=== PATIENT | male | born 1940 | race Caucasian/White ===

== ENCOUNTER 2016-09-28 08:29 | Inpatient (IN) | payer MEDICARE, OTHER ==
[2016-09-28] MEDS ORDERED: Ondansetron 4 MG Tab.DIS PO PRN (12:48)
[2016-09-28] MEDS ORDERED: Morphine 2 MG/ML Syringe IVPUSH PRN (12:48)
[2016-09-28] MEDS ORDERED: traMADol 50 MG Tab PO PRN (12:54)
--- NOTE | 2016-09-28 14:42 | CR ---
CLINICAL HISTORY: 76-year-old male with fever. INTERPRETATION: Old healed fracture deformities with pleural scarring posterolateral left sixth and seventh ribs. Calcifications arch of the aorta and chronic hypertrophic arthritic changes of spine. Cardiac silhouette prominent but no cephalization of flow, signs of alveolar edema or dependent pleu ral effusion. Subtle peribronchial "cuffing" but no lung mass, hilar lymphadenopathy or focal lobar pneumonia. No pneumothorax. CONCLUSION: Old left rib fractures. Mild bronchitis. No lobar pneumonia.
[2016-09-28] MEDS: Acetaminophen 500 MG Tab PO PRN (17:03)
--- NOTE | 2016-09-28 20:06 | HP ---
CHIEF COMPLAINT: Status post right total hip arthroplasty. HISTORY OF PRESENTING ILLNESS: Mr. Camilo Obrien is a 76-year-old male with a medical history significant for hypertension, hyperlipidemia, severe osteoarthritis, multiple previous fractures in the past status post left total hip arthroplasty, and currently underwent a right total hip arthroplasty on September 25, 2016, with an estimated blood loss of 400 mL under general anesthesia, was transferred from [facility] for continued physical therapy and occupational therapy. At this time, the patient complaints of mild pain at the surgical site which is the right hip. He grades the pain as 2 to 3/10 in intensity, which gets aggravated on ambulation, relieved with rest and pain medication, nonradiating type of pain, not associated with any nausea or vomiting. Denies any chest pains. No shortness of breath. No abdominal pain. No fevers. No chills. No cough. No sputum in the last few days. No complaints of diarrhea in the last 2 days. The patient has a longstanding history of hypertension and currently on antihypertensive medication. He denied any history of chest pains on exertion. No history of dyspnea on exertion. No history of orthopnea or paroxysmal nocturnal dyspnea. The patient denied any history of hematemesis, hematochezia, or melanotic stools. Normal bowel and bladder habits otherwise. REVIEW OF SYSTEMS: A complete review of system including skin, ear, nose, and throat, cardiovascular system, respiratory system, gastrointestinal system, genitourinary system, hematology, oncology, neurology, allergy, immunology, and constitutional were all evaluated and were negative except for the above-said notes. PAST MEDICAL HISTORY: Significant for: 1. Hypertension. 2. Hyperlipidemia. 3. Severe osteoarthritis. 4. History of blood loss anemia in the past. PAST SURGICAL HISTORY: Significant for: 1. Carotid endarterectomy. 2. Tonsillectomy and adenoidectomy. 3. Status post left total hip arthroplasty. 4. History of right ankle fracture. ALLERGIES: The patient is noted to have allergies to chlorhexidine which causes a rash. SOCIAL HISTORY: Had a history of smoking in the past, but quit smoking more than 12 to 15 years back. History of occasional alcohol intake, very rarely. FAMILY HISTORY: Significant for cancer in his mother. PHYSICAL EXAMINATION: Vital Signs: Temperature 101.2, blood pressure 148/73, respiratory rate of 18, saturating at 96% on room air. General Appearance: The patient is well oriented to time, place, and person. Follows commands spontaneously. Cardiovascular System: S1, S2 heard with normal intensity. No gallops. Respiratory System: Clear to auscultation bilaterally. No wheeze. No crepitations. Abdomen: Soft. Bowel sounds positive. Nontender. No rigidity. Extremities: No edema in bilateral lower extremities. Neurology: No gross focal neurological deficits. Skin: No acute rash noted. LABORATORY DATA: No new labs ordered for today and labs obtained yesterday shows sodium 140, potassium 3.9, chloride 105, bicarb 26.4, creatinine 0.8. WBC 11.2, hemoglobin for 12.7, hematocrit 37.4, platelet count 135. HOME MEDICATIONS: Include: 1. Lipitor 10 mg daily. 2. Norvasc 10 mg daily. 3. Metoprolol-XL 100 mg twice a day. 4. Hydrochlorothiazide 25 mg daily. 5. Plavix 75 mg daily. 6. Aspirin 81 mg daily. 7. Tylenol Extra Strength 500 mg every 6 hours as needed for pain. Medications upon discharged from [facility]: 1. Ultram 50 mg every 4 hours as needed for pain. 2. Percocet 5/325 mg every 4 hours as needed for pain 1 to 2 tablets. ASSESSMENT: 1. Status post right total hip arthroplasty. 2. fever. 3. Hypertension. 4. Hyperlipidemia. PLAN: 1. Status post right hip arthroplasty done on 09/25/2016, currently complains of mild pain. We will continue with oral and IV pain medications for now. We will have Physical Therapy and Occupational Therapy evaluate and treat while in the swing bed. We will follow. 2. Fever. The was patient noted to have a temperature of 101.2. Exact source is not clear. The patient denies any cough with sputum. We will obtain a chest x-ray. We will obtain urinalysis. We will obtain blood cultures at this time. No indication for IV antibiotics as there is no primary source of infection identified, unsure this fever is resulting in the postoperative period. No discharge noted at the surgical site also. No acute rash noted. We will closely follow the culture reports and labs. 3. Hypertension. The patient's blood pressure seems to be in an acceptable range. Continue current antihypertensive medications. 4. DVT prophylaxis as recommended by the orthopedic team. 5. Hyperlipidemia. The patient is currently on statin with Lipitor 10 mg daily. Continue the same. 6. Code status. The patient wants to be full code. 7. Discussed with the patient and family members regarding the plan of care. Reviewed the labs and medications. Reviewed the old charts. [facility] /[id number]
[2016-09-28] MEDS: Metoprolol Succinate 50 MG Tab.ER PO SCH (20:46)
[2016-09-29] MEDS: Acetaminophen/oxyCODONE 325-5 MG Tab PO PRN (04:31)
[2016-09-29 06:34] LABS: CHLORIDE,CL 102 mmol/L (101-111); SODIUM,NA 140 mmol/L (135-145)
[2016-09-29] MEDS ORDERED: Aspirin 81 MG Tab.Chew PO SCH (09:00)
[2016-09-29] MEDS: atorvaSTATin 10 MG Tab PO SCH (09:02)
[2016-09-29] MEDS: amLODIPine 5 MG Tab PO SCH (09:02)
[2016-09-29] MEDS: Metoprolol Succinate 50 MG Tab.ER PO SCH ×2 (09:04→21:21)
[2016-09-29] MEDS: Hydrochlorothiazide 25 MG Tab PO SCH (09:05)
[2016-09-29] MEDS: Clopidogrel 75 MG Tab PO SCH (09:05)
[2016-09-29] MEDS: Acetaminophen 500 MG Tab PO PRN ×2 (09:06→17:37)
[2016-09-29] MEDS: Enoxaparin 40 MG/0.4 ML Syringe SUBCUT SCH (09:07)
[2016-09-29] MEDS: Levofloxacin 500 MG Tab PO SCH (15:18)
[2016-09-29] MEDS: Potassium Chloride 10 MEQ Tab.ER PO SCH (17:37)
[2016-09-30] MEDS: Acetaminophen/oxyCODONE 325-5 MG Tab PO PRN ×3 (01:29→23:18)
[2016-09-30] MEDS: Zolpidem 5 MG Tab PO PRN ×2 (01:30→23:18)
[2016-09-30 06:53] LABS: CHLORIDE,CL 101 mmol/L (101-111); SODIUM,NA 139 mmol/L (135-145)
[2016-09-30] MEDS: amLODIPine 5 MG Tab PO SCH (08:29)
[2016-09-30] MEDS: atorvaSTATin 10 MG Tab PO SCH (08:29)
[2016-09-30] MEDS: Metoprolol Succinate 50 MG Tab.ER PO SCH ×2 (08:29→21:49)
[2016-09-30] MEDS: Hydrochlorothiazide 25 MG Tab PO SCH (08:29)
[2016-09-30] MEDS: Levofloxacin 500 MG Tab PO SCH (08:29)
[2016-09-30] MEDS: Potassium Chloride 10 MEQ Tab.ER PO SCH ×2 (08:29→17:23)
[2016-09-30] MEDS: Clopidogrel 75 MG Tab PO SCH (08:29)
[2016-09-30] MEDS: Enoxaparin 40 MG/0.4 ML Syringe SUBCUT SCH (08:29)
[2016-10-01] MEDS: Levofloxacin 500 MG Tab PO SCH (09:55)
[2016-10-01] MEDS: Potassium Chloride 10 MEQ Tab.ER PO SCH ×2 (09:55→17:49)
[2016-10-01] MEDS: Clopidogrel 75 MG Tab PO SCH (09:57)
[2016-10-01] MEDS: Hydrochlorothiazide 25 MG Tab PO SCH (09:58)
[2016-10-01] MEDS: Metoprolol Succinate 50 MG Tab.ER PO SCH ×2 (09:58→20:40)
[2016-10-01] MEDS: atorvaSTATin 10 MG Tab PO SCH (09:58)
[2016-10-01] MEDS: amLODIPine 5 MG Tab PO SCH (09:59)
[2016-10-01] MEDS: Enoxaparin 40 MG/0.4 ML Syringe SUBCUT SCH (09:59)
[2016-10-01] MEDS: Acetaminophen/oxyCODONE 325-5 MG Tab PO PRN (20:41)
[2016-10-02] MEDS: atorvaSTATin 10 MG Tab PO SCH (09:19)
[2016-10-02] MEDS: Metoprolol Succinate 50 MG Tab.ER PO SCH ×2 (09:19→20:29)
[2016-10-02] MEDS: Hydrochlorothiazide 25 MG Tab PO SCH (09:19)
[2016-10-02] MEDS: Potassium Chloride 10 MEQ Tab.ER PO SCH ×2 (09:20→17:12)
[2016-10-02] MEDS: Enoxaparin 40 MG/0.4 ML Syringe SUBCUT SCH (09:20)
[2016-10-02] MEDS: Clopidogrel 75 MG Tab PO SCH (09:20)
[2016-10-02] MEDS: Levofloxacin 500 MG Tab PO SCH (09:20)
[2016-10-02] MEDS: amLODIPine 5 MG Tab PO SCH (09:20)
[2016-10-03] MEDS: Acetaminophen/oxyCODONE 325-5 MG Tab PO PRN ×2 (01:56→21:06)
[2016-10-03] MEDS: Potassium Chloride 10 MEQ Tab.ER PO SCH ×2 (09:12→17:48)
[2016-10-03] MEDS: Levofloxacin 500 MG Tab PO SCH (09:12)
[2016-10-03] MEDS: atorvaSTATin 10 MG Tab PO SCH (09:13)
[2016-10-03] MEDS: amLODIPine 5 MG Tab PO SCH (09:13)
[2016-10-03] MEDS: Hydrochlorothiazide 25 MG Tab PO SCH (09:13)
[2016-10-03] MEDS: Clopidogrel 75 MG Tab PO SCH (09:13)
[2016-10-03] MEDS: Metoprolol Succinate 50 MG Tab.ER PO SCH ×2 (09:14→20:29)
[2016-10-03] MEDS: Enoxaparin 40 MG/0.4 ML Syringe SUBCUT SCH (09:15)
[2016-10-03] MEDS: Acetaminophen 500 MG Tab PO PRN (14:15)
[2016-10-04] MEDS: Potassium Chloride 10 MEQ Tab.ER PO SCH ×2 (08:22→17:59)
[2016-10-04] MEDS: Hydrochlorothiazide 25 MG Tab PO SCH (08:22)
[2016-10-04] MEDS: Enoxaparin 40 MG/0.4 ML Syringe SUBCUT SCH (08:23)
[2016-10-04] MEDS: Levofloxacin 500 MG Tab PO SCH (08:23)
[2016-10-04] MEDS: atorvaSTATin 10 MG Tab PO SCH (08:23)
[2016-10-04] MEDS: amLODIPine 5 MG Tab PO SCH (08:25)
[2016-10-04] MEDS: Metoprolol Succinate 50 MG Tab.ER PO SCH ×2 (08:26→21:11)
[2016-10-04] MEDS: Clopidogrel 75 MG Tab PO SCH (08:26)
[2016-10-04] MEDS: Acetaminophen 500 MG Tab PO PRN (20:00)
[2016-10-05] MEDS: Acetaminophen 500 MG Tab PO PRN ×2 (02:19→18:28)
[2016-10-05] MEDS: atorvaSTATin 10 MG Tab PO SCH (10:10)
[2016-10-05] MEDS: Metoprolol Succinate 50 MG Tab.ER PO SCH ×2 (10:10→20:27)
[2016-10-05] MEDS: Levofloxacin 500 MG Tab PO SCH (10:11)
[2016-10-05] MEDS: Hydrochlorothiazide 25 MG Tab PO SCH (10:11)
[2016-10-05] MEDS: amLODIPine 5 MG Tab PO SCH (10:12)
[2016-10-05] MEDS: Potassium Chloride 10 MEQ Tab.ER PO SCH ×2 (10:12→18:28)
[2016-10-05] MEDS: Enoxaparin 40 MG/0.4 ML Syringe SUBCUT SCH (10:13)
[2016-10-05] MEDS: Clopidogrel 75 MG Tab PO SCH (10:13)
[2016-10-06] MEDS: Acetaminophen/oxyCODONE 325-5 MG Tab PO PRN ×2 (02:54→13:40)
[2016-10-06 07:19] VITALS: BP 129/72
[2016-10-06] MEDS: Metoprolol Succinate 50 MG Tab.ER PO SCH (09:01)
[2016-10-06] MEDS: Levofloxacin 500 MG Tab PO SCH (09:01)
[2016-10-06] MEDS: Potassium Chloride 10 MEQ Tab.ER PO SCH (09:02)
[2016-10-06] MEDS: Clopidogrel 75 MG Tab PO SCH (09:03)
[2016-10-06] MEDS: Hydrochlorothiazide 25 MG Tab PO SCH (09:03)
[2016-10-06] MEDS: atorvaSTATin 10 MG Tab PO SCH (09:03)
[2016-10-06] MEDS: amLODIPine 5 MG Tab PO SCH (09:04)
[2016-10-06] MEDS: Enoxaparin 40 MG/0.4 ML Syringe SUBCUT SCH (09:04)
--- NOTE | 2016-10-06 13:04 | PN ---
DATE: 10/06/2016 SUBJECTIVE: The patient continues to do well. The patient denies any ongoing complaints, and he mentioned that he is ready to go home. He denies any fever, chills, chest pain, shortness of breath, abdominal pain, or any other complaints. OBJECTIVE: Vital Signs: Blood pressure is 129/72, pulse of 70, respiration of 20, temperature of 98. Heart: Regular rate and rhythm. Normal S1 and S2. No gallops. No rubs. Lungs: Equal bilaterally. No crackles. No wheezing. Abdomen: Soft and nontender. Extremities: Negative for any significant pedal edema. No calf tenderness and examination of the right hip remarkable for the dressing on the anterior aspect of the right hip. PLAN: We will discharge the patient home today, and we will resume his home medication. CONDITION ON DISCHARGE: Improved. [facility] /[id number]
--- NOTE | 2016-10-07 07:57 | DISCH ---
FINAL DIAGNOSES: 1. Status post right hip arthroplasty done on 09/25/2016. 2. Bronchitis. 3. Hypertension. 4. Hyperlipidemia. 5. Coronary artery disease, status post carotid endarterectomy. HOSPITAL COURSE: The patient was admitted to [facility] bed. PT and OT were consulted and during the admission, the patient was noted to have low grade temperature and the patient was empirically started on Levaquin for possible bronchitis. The patient did well. Podiatry also was consulted because of ingrown toenail. The rest of the hospital course was uncomplicated, and he was discharged on 10/06/2016. CONDITION ON DISCHARGE: Improved. DISCHARGE INSTRUCTIONS: See discharge sheet. HOME MEDICATIONS: See discharge sheet. [facility] /[id number]
== END 2016-10-06 14:30 | disposition home or self-care (01) | DRG 561 ==
LOC: UNDOADMIN 11:45 → DL.MS 11:45
PROVIDERS: ADMIT Internal Medicine; ATTEND Internal Medicine
DX: Z47.1 Aftercare following joint replacement surgery (principal); R50.9 Fever, unspecified; J40 Bronchitis, not specified as acute or chronic; I10 Essential (primary) hypertension; E78.5 Hyperlipidemia, unspecified; I25.10 Atherosclerotic heart disease of native coronary artery without angina pectoris; Z87.891 Personal history of nicotine dependence; Z96.641 Presence of right artificial hip joint
CPT/HCPCS: 36415; 71010; 80048; 81001; 85027; 87040; 87086; 97110-GO; 97110-GP; 97116-GP; 97161-GP; 97165-GO; 97530-GO; 97535-GO; A9270-GY; J1650

== ENCOUNTER 2017-07-22 09:24 | Inpatient (IN) | payer MEDICARE, OTHER ==
--- NOTE | 2017-07-22 09:44 | EDM.PDOC ---
ED HPI GENERAL MEDICAL PROBLEM - General Chief Complaint: Respiratory Problem Stated Complaint: LOWER BACK Time Seen by Provider: 07/22/17 09:39 Source of Information: Reports: Patient, Old Records, RN, RN Notes Reviewed History Limitations: Reports: No Limitations - History of Present Illness INITIAL COMMENTS - FREE TEXT/NARRATIVE: Arrives from home by POV, requiring assistance to get out of car and into ER due to generalized weakness and shortness of breath. Pt presents with c/o progressively worsening cough, wheezing, shortness of breath, and congestion. He is unsure if he has had fevers or not, he just knows the he is "sick". His temperature was 99.1F orally per triage nurse, and presented with oxygen saturation of 88% on RA. Pt denies chest pain, palpitations, syncope, or near syncope. Onset: Gradual Duration: Constant, Getting Worse Location: Reports: Chest, Generalized Severity: Severe Improves with: Reports: None Worsens with: Reports: None Associated Symptoms: Reports: No Other Symptoms Lower Back Pain Score (Numeric/FACES): 10 - Related Data Allergies Allergy/AdvReac Type Severity Reaction Status Date / Time chlorhexidine Allergy Rash Verified 07/22/17 09:28 Home Meds: Home Meds Acetaminophen [Tylenol Extra Strength] 500 mg PO Q6H PRN 09/28/16 [History] Aspirin 81 mg PO DAILY 09/28/16 [History] Clopidogrel [Plavix] 75 mg PO DAILY 09/28/16 [History] Hydrochlorothiazide 25 mg PO DAILY 09/28/16 [History] Metoprolol Succinate [Toprol XL] 100 mg PO BID 09/28/16 [History] amLODIPine [Norvasc] 10 mg PO DAILY 09/28/16 [History] atorvaSTATin [Lipitor] 10 mg PO DAILY 09/28/16 [History] Methylprednisolone [IJD: Methylprednisolone] 4 mg PO DAILY 07/22/17 [History] Past Medical History - Past Health History Medical/Surgical History: Denies Medical/Surgical History HEENT History: Reports: Hard of Hearing Cardiovascular History: Reports: High Cholesterol, Hypertension 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 Hematologic History: Reports: Anemia Oncologic (Cancer) History: Reports: Other (See Below) Other Oncologic History: "some kind of spot removed of my right wrist" Dermatologic History: Reports: Other (See Below) Other Dermatologic History: Spot on nose - Infectious Disease History Infectious Disease History: Reports: Measles, Rheumatic Fever - Past Surgical History HEENT Surgical History: Reports: Adenoidectomy, Tonsillectomy Cardiovascular Surgical History: Reports: Carotid Endarterectomy Respiratory Surgical History: Reports: None Musculoskeletal Surgical History: Reports: Hip Replacement Dermatological Surgical History: Reports: None Social & Family History - Family History Family Medical History: Noncontributory - Tobacco Use Smoking Status *Q: Former Smoker Years of Tobacco use: 50 Used Tobacco, but Quit: Yes Month/Year Tobacco Last Used: 1999 Second Hand Smoke Exposure: No - Caffeine Use Caffeine Use: Reports: Coffee, Soda - Alcohol Use Alcohol Use History: No - Recreational Drug Use Recreational Drug Use: No - Living Situation & Occupation Living situation: Reports: Single, Other (lives with his brother) Occupation: Retired ED ROS GENERAL - Review of Systems Review Of Systems: ROS reveals no pertinent complaints other than HPI. ED EXAM, GENERAL - Physical Exam Exam: See Below Exam Limited By: No Limitations General Appearance: Alert, Obese, Other (Frail elderly male, ill but non-toxic appearing) Eye Exam: Bilateral Eye: Normal Inspection Ears: Normal External Exam, Hearing Loss (chronic/stable) Nose: No Blood, Nasal Drainage (small amt. of clear nasal mucus congestion) Throat/Mouth: Normal Voice, No Airway Compromise Head: Atraumatic, Normocephalic Neck: Normal Inspection, Supple, Non-Tender, Full Range of Motion Respiratory/Chest: No Respiratory Distress, No Accessory Muscle Use, Decreased Breath Sounds, Crackles, Rhonchi (Rt mid-chest), Wheezing (mild scattered wheezes) Cardiovascular: Regular Rate, Rhythm, Other (chronic/stable mild lower ext. edema per pt) GI/Abdominal: Normal Bowel Sounds, Soft, Non-Tender, No Distention, Other ( benign obese abdomen). No: Guarding, Rigid, Rebound (Male) Exam: Deferred Rectal (Males) Exam: Deferred Back Exam: Normal Inspection, Decreased Range of Motion (chronic/stable) Extremities: Non-Tender Neurological: Alert, Oriented, CN II-XII Intact, Normal Cognition, No Motor/ Sensory Deficits, Other (generalized weakness) Psychiatric: Normal Affect, Normal Mood Skin Exam: Warm, Dry, Intact, Normal Color, No Rash EKG INTERPRETATION EKG Date: 07/22/17 Time: 10:03 Rhythm: Other (sinus rhythm) Rate (Beats/Min): 71 [place]: Normal P-Wave: Present QRS: Other (inferior Q waves) ST-T: Normal QT: Normal Course - Vital Signs Last Recorded V/S: Last Vital Signs Temp 37.3 C 07/22/17 09:28 Pulse 67 07/22/17 09:47 Resp 20 07/22/17 09:28 BP 133/98 H 07/22/17 09:28 Pulse Ox 88 L 07/22/17 09:28 - Orders/Labs/Meds Orders: Active Orders 24 hr Category Date Time Status EKG 12 Lead [EKG Documentation Completion] [RC] STAT Care 07/22/17 09:53 Active Peripheral IV Care [RC] . DIRECTED Care 07/22/17 09:54 Active RT Aerosol Therapy [RC] ASDIRECTED Care 07/22/17 09:47 Active Chest 2V [CR] Stat Exams 07/22/17 09:53 Taken CULTURE BLOOD [BC] Stat Lab 07/22/17 10:20 Received CULTURE BLOOD [BC] Stat Lab 07/22/17 10:24 Received UA W/MICROSCOPIC [URIN] Stat Lab 07/22/17 10:26 Ordered Levofloxacin/Dextrose 5%-Water [Levaquin in D5W 750 MG/ Med 07/22/17 10:41 Active 150 ML] 750 mg Premix Bag 1 bag IV ONETIME Sodium Chloride 0.9% [Saline Flush] Med 07/22/17 09:52 Active 10 ml FLUSH ASDIRECTED PRN Blood Culture x2 Reflex Set [OM.PC] Stat Oth 07/22/17 09:53 Ordered Peripheral IV Insertion Adult [OM.PC] Stat Oth 07/22/17 09:53 Ordered Medication Orders Levofloxacin/Dextrose 750 mg/ (Premix) 150 mls @ 100 mls/hr IV ONETIME ONE Stop: 07/22/17 12:10 Last Admin: 07/22/17 11:05 Dose: 100 mls/hr Sodium Chloride (Saline Flush) 10 ml FLUSH ASDIRECTED PRN PRN Reason: Keep Vein Open Last Admin: 07/22/17 10:32 Dose: 10 ml Labs: Laboratory Tests 07/22/17 07/22/17 07/22/17 Range/Units 10:20 10:20 10:20 WBC 15.5 H (5.0-10.0) 10^3/uL RBC 4.28 L (4.6-6.2) 10^6/uL Hgb 13.7 L (14.0-18.0) g/dL Hct 42.1 (40.0-54.0) % MCV 98.4 (80-100) fL MCH 32.0 (27.0-34.0) pg MCHC 32.5 L (33.0-35.0) g/dL Plt Count 166 (150-450) 10^3/uL Neut % (Auto) 80.4 H (42.2-75.2) % Lymph % (Auto) 6.6 L (20.5-50.1) % [place] % (Auto) 12.9 H (2-8) % Eos % (Auto) 0.0 L (1.0-3.0) % Baso % (Auto) 0.1 (0.0-1.0) % Sodium 137 (135-145) mmol/L Potassium 3.4 L (3.6-5.0) mmol/L Chloride 101 (101-111) mmol/L Carbon Dioxide 27.0 (21.0-31.0) mmol/L Anion Gap 12.4 BUN 20 H (7-18) mg/dL Creatinine 0.9 (0.6-1.3) mg/dL Est Cr Clr Drug Dosing 76.64 mL/min Estimated GFR (MDRD) > 60 BUN/Creatinine Ratio 22.22 Glucose 157 H (74-105) mg/dL Lactic Acid 1.6 (0.5-2.2) mmol/L Calcium 8.7 (8.4-10.2) mg/dl Total Bilirubin 1.9 H (0.2-1.0) mg/dL AST 29 (10-42) IU/L ALT 24 (10-60) IU/L Alkaline Phosphatase 56 (42-121) IU/L Troponin I 0.04 H* (0.00-0.02) ng/ml B-Natriuretic Peptide 557 H (0-100) pg/ml Total Protein 7.6 (6.7-8.2) g/dl Albumin 3.8 (3.2-5.5) g/dl Globulin 3.8 Albumin/Globulin Ratio 1.00 Urine Color (YELLOW) Urine Appearance (CLEAR) Urine pH (5.0-9.0) Ur Specific [place] (1.005-1.030) Urine Protein (NEGATIVE) Urine Glucose (UA) (NEGATIVE) Urine Ketones (NEGATIVE) Urine Occult Blood (NEGATIVE) Urine Nitrite (NEGATIVE) Urine Bilirubin (NEGATIVE) Urine Urobilinogen (0.2-1.0) mg/dL Ur Leukocyte Esterase (NEGATIVE) Urine RBC /HPF Urine WBC (0-5/HPF) /HPF Ur Epithelial Cells /HPF Amorphous Sediment (0/HPF) /HPF Urine Bacteria (0-FEW/HPF) /HPF Urine Mucus /LPF 07/22/17 Range/Units 10:26 WBC (5.0-10.0) 10^3/uL RBC (4.6-6.2) 10^6/uL Hgb (14.0-18.0) g/dL Hct (40.0-54.0) % MCV (80-100) fL MCH (27.0-34.0) pg MCHC (33.0-35.0) g/dL Plt Count (150-450) 10^3/uL Neut % (Auto) (42.2-75.2) % Lymph % (Auto) (20.5-50.1) % [place] % (Auto) (2-8) % Eos % (Auto) (1.0-3.0) % Baso % (Auto) (0.0-1.0) % Sodium (135-145) mmol/L Potassium (3.6-5.0) mmol/L Chloride (101-111) mmol/L Carbon Dioxide (21.0-31.0) mmol/L Anion Gap BUN (7-18) mg/dL Creatinine (0.6-1.3) mg/dL Est Cr Clr Drug Dosing mL/min Estimated GFR (MDRD) BUN/Creatinine Ratio Glucose (74-105) mg/dL Lactic Acid (0.5-2.2) mmol/L Calcium (8.4-10.2) mg/dl Total Bilirubin (0.2-1.0) mg/dL AST (10-42) IU/L ALT (10-60) IU/L Alkaline Phosphatase (42-121) IU/L Troponin I (0.00-0.02) ng/ml B-Natriuretic Peptide (0-100) pg/ml Total Protein (6.7-8.2) g/dl Albumin (3.2-5.5) g/dl Globulin Albumin/Globulin Ratio Urine Color Dark yellow (YELLOW) Urine Appearance Slightly cloudy (CLEAR) Urine pH 6.0 (5.0-9.0) Ur Specific [place] 1.020 (1.005-1.030) Urine Protein 100 H (NEGATIVE) Urine Glucose (UA) Negative (NEGATIVE) Urine Ketones Negative (NEGATIVE) Urine Occult Blood Negative (NEGATIVE) Urine Nitrite Negative (NEGATIVE) Urine Bilirubin Small H (NEGATIVE) Urine Urobilinogen 2.0 H (0.2-1.0) mg/dL Ur Leukocyte Esterase Negative (NEGATIVE) Urine RBC 0-5 /HPF Urine WBC 0-5 (0-5/HPF) /HPF Ur Epithelial Cells Few /HPF Amorphous Sediment Moderate (0/HPF) /HPF Urine Bacteria Rare (0-FEW/HPF) /HPF Urine Mucus Few H /LPF Meds: Medications Generic Name Dose Route Start Last Admin Trade Name Freq PRN Reason Stop Dose Admin Levofloxacin/Dextrose 750 mg/ 150 mls @ 100 mls/hr 07/22/17 10:41 07/22/17 11 :05 Premix IV 07/22/17 12:10 100 mls/hr ONETIME ONE Administration Sodium Chloride 10 ml 07/22/17 09:52 07/22/17 10:32 Saline Flush FLUSH 10 ml ASDIRECTED PRN Administration Keep Vein Open Discontinued Medications Generic Name Dose Route Start Last Admin Trade Name Freq PRN Reason Stop Dose Admin Albuterol/Ipratropium 3 ml 07/22/17 09:47 07/22/17 09:52 Duoneb 3.0-0.5 Mg/3 Ml NEB 07/22/17 09:48 3 ml ONETIME ONE Administration Methylprednisolone Sodium Succinate 125 mg 07/22/17 10:41 07/22/17 11:04 Solu-Medrol IVPUSH 07/22/17 10:42 125 mg ONETIME ONE Administration - Radiology Interpretation Free Text/Narrative:: Chest x-ray: Hyperinflation as on 09/28/16 with new right middle lobe infiltrate. See rad report. Departure - Departure Time of Disposition: 11:17 (admitted to Dr. Jurado) Disposition: Admitted As Inpatient 66 Condition: Serious Clinical Impression: COPD exacerbation Pneumonia Qualifiers: Pneumonia type: due to unspecified organism Laterality: right Lung location: middle lobe of lung Qualified Code(s): J18.1 - Lobar pneumonia, unspecified organism - Discharge Information Forms: ED Department Discharge - My Orders Last 24 Hours: My Active Orders 07/22/17 09:47 RT Aerosol Therapy [RC] ASDIRECTED 07/22/17 09:52 Sodium Chloride 0.9% [Saline Flush] 10 ml FLUSH ASDIRECTED PRN 07/22/17 09:53 EKG 12 Lead [EKG Documentation Completion] [RC] STAT Chest 2V [CR] Stat Blood Culture x2 Reflex Set [OM.PC] Stat Peripheral IV Insertion Adult [OM.PC] Stat 07/22/17 09:54 Peripheral IV Care [RC] . DIRECTED 07/22/17 10:20 CULTURE BLOOD [BC] Stat 07/22/17 10:24 CULTURE BLOOD [BC] Stat 07/22/17 10:26 UA W/MICROSCOPIC [URIN] Stat 07/22/17 10:41 Levofloxacin/Dextrose 5%-Water [Levaquin in D5W 750 MG/150 ML] 750 mg Premix Bag 1 bag IV ONETIME - Assessment/Plan Last 24 Hours: My Active Orders 07/22/17 09:47 RT Aerosol Therapy [RC] ASDIRECTED 07/22/17 09:52 Sodium Chloride 0.9% [Saline Flush] 10 ml FLUSH ASDIRECTED PRN 07/22/17 09:53 EKG 12 Lead [EKG Documentation Completion] [RC] STAT Chest 2V [CR] Stat Blood Culture x2 Reflex Set [OM.PC] Stat Peripheral IV Insertion Adult [OM.PC] Stat 07/22/17 09:54 Peripheral IV Care [RC] . DIRECTED 07/22/17 10:20 CULTURE BLOOD [BC] Stat 07/22/17 10:24 CULTURE BLOOD [BC] Stat 07/22/17 10:26 UA W/MICROSCOPIC [URIN] Stat 07/22/17 10:41 Levofloxacin/Dextrose 5%-Water [Levaquin in D5W 750 MG/150 ML] 750 mg Premix Bag 1 bag IV ONETIME
[2017-07-22] MEDS ORDERED: Albuterol/Ipratropium 3.0-0.5 MG/3 ML Neb Soln NEB ONE (09:47)
[2017-07-22] MEDS: Sodium Chloride 0.9% 10 ML Syringe FLUSH PRN ×3 (10:32→22:05)
[2017-07-22] MEDS ORDERED: Levofloxacin/Dextrose 5%-Water 750 MG in Premix Bag 1 BAG IV ONE (10:41)
[2017-07-22] MEDS ORDERED: methylPREDNISolone Sodium Succinate 125 MG/2 ML SDV IVPUSH ONE (10:41)
[2017-07-22 10:52] LABS: ANION GAP 12.4; CHLORIDE,CL 101 mmol/L (101-111); SODIUM,NA 137 mmol/L (135-145)
--- NOTE | 2017-07-22 12:56 | PCM.HP ---
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 He presented to te ER with sudden of SOB and weakness. Patient says he was fairly well yesterday except for slight cough. This morning he was getting out of bed but realized he was a little weak and could not maintain his balance. He was brought to the ED. On arrival he required assistance to get out of the car. He was hypoxic with saturation at 88% on RA. The cough which was mild yesterday has gotten worse. He produce clear sputum. He denies fever, chills, chest pain, palpitation. No ills ocntact, or recent travel. No leg swelling or calf swelling or pain. He denies orthopnea, PND. No wheezing. Denies having flu symptoms. He quit smoking a couple of years ago. In the ER his temperature was 99.1F, hypoxic at 88% on RA, wbc was 15, BNP 557 and cxr showed right middle lobe infiltrate. He was started on IV levaquin. At the time of this evaluation he says he is feeling better, SOB has improved. He is on 2L via [place]. Onset of Symptoms: Reports: Today Duration of Symptoms: Reports: Minutes:, Hour(s):, Improving Location: Reports: Chest, Generalized Severity: Moderate Improves with: Reports: Rest Worsens with: Reports: Movement Context: Reports: Activity/Exercise Associated Symptoms: Reports: Cough, cough w sputum Lower Back Pain Score (Numeric/FACES): 10 - Related Data Allergies/Adverse Reactions: Allergies Allergy/AdvReac Type Severity Reaction Status Date / Time chlorhexidine Allergy Rash Verified 07/22/17 12:33 Home Medications: Home Meds Acetaminophen [Tylenol Extra Strength] 500 mg PO Q6H PRN 09/28/16 [History] Aspirin 81 mg PO DAILY 09/28/16 [History] Clopidogrel [Plavix] 75 mg PO DAILY 09/28/16 [History] Hydrochlorothiazide 25 mg PO DAILY 09/28/16 [History] Metoprolol Succinate [Toprol XL] 100 mg PO BID 09/28/16 [History] amLODIPine [Norvasc] 10 mg PO DAILY 09/28/16 [History] atorvaSTATin [Lipitor] 10 mg PO DAILY 09/28/16 [History] Celecoxib 200 mg PO BEDTIME 07/22/17 [History] Methylprednisolone [IJD: Methylprednisolone] 4 mg PO DAILY 07/22/17 [History] Past Medical History - Past Health History Medical/Surgical History: Denies Medical/Surgical History HEENT History: Reports: Hard of Hearing Cardiovascular History: Reports: High Cholesterol, Hypertension 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 Hematologic History: Reports: Anemia Oncologic (Cancer) History: Reports: Other (See Below) Other Oncologic History: "some kind of spot removed of my right wrist" Dermatologic History: Reports: Other (See Below) Other Dermatologic History: Spot on nose - Infectious Disease History Infectious Disease History: Reports: Measles, Rheumatic Fever - Past Surgical History HEENT Surgical History: Reports: Adenoidectomy, Tonsillectomy Cardiovascular Surgical History: Reports: Carotid Endarterectomy Respiratory Surgical History: Reports: None Musculoskeletal Surgical History: Reports: Hip Replacement Dermatological Surgical History: Reports: None Social & Family History - Family History Family Medical History: Noncontributory - Tobacco Use Smoking Status *Q: Former Smoker Years of Tobacco use: 50 Used Tobacco, but Quit: Yes Month/Year Tobacco Last Used: 1999 Second Hand Smoke Exposure: No - Caffeine Use Caffeine Use: Reports: Coffee, Soda - Recreational Drug Use Recreational Drug Use: No - Living Situation & Occupation Living situation: Reports: Single, Other (lives with his brother) Occupation: Retired H&P Review of Systems - Review of Systems: Review Of Systems: See Below General: Reports: Weakness HEENT: Reports: No Symptoms Pulmonary: Reports: Shortness of Breath, Cough, Sputum Cardiovascular: Reports: No Symptoms Gastrointestinal: Reports: No Symptoms Genitourinary: Reports: No Symptoms Musculoskeletal: Reports: No Symptoms Skin: Reports: No Symptoms Psychiatric: Reports: No Symptoms Neurological: Reports: No Symptoms Hematologic/Lymphatic: Reports: No Symptoms Immunologic: Reports: No Symptoms Exam - Exam Exam: See Below - Vital Signs Vital Signs: Last Vital Signs Temp 99.1 F 07/22/17 09:28 Pulse 67 07/22/17 09:47 Resp 20 07/22/17 09:28 BP 133/98 H 07/22/17 09:28 Pulse Ox 88 L 07/22/17 09:28 Weight: 260 lb - Exam Quality Assessment: Supplemental Oxygen, DVT Prophylaxis General: Alert, Oriented, Cooperative HEENT: PERRLA, Hearing Intact, Mucosa Moist & [place], Nares Patent, Normal Nasal Septum, Posterior Pharynx Clear, Conjunctiva Clear, EOMI, EACs Clear, TMs Clear Neck: Supple, Trachea Midline Lungs: Clear to Auscultation, Normal Respiratory Effort Cardiovascular: Regular Rate, Regular Rhythm GI/Abdominal Exam: Normal Bowel Sounds, Soft, Non-Tender, No Organomegaly, No Distention, No Abnormal Bruit, No Mass, Pelvis Stable (Male) Exam: Normal Prostate, Deferred Rectal (Males) Exam: Deferred Back Exam: Normal Inspection Extremities: Pedal Edema Skin: Warm, Dry, Intact Neurological: Cranial Nerves Intact, Reflexes Equal Bilateral Neuro Extensive - Mental Status: Alert, Oriented x3, Normal Mood/Affect, Normal Cognition, Memory Intact Neuro Extensive - Motor, Sensory, Reflexes: CN II-XII Intact, Normal Gait, Normal Reflexes Psychiatric: Alert, Normal Affect, Normal Mood - Patient Data Lab Results Last 24 hrs: Laboratory Results - last 24 hr 07/22/17 07/22/17 07/22/17 Range/Units 10:20 10:20 10:20 WBC 15.5 H (5.0-10.0) 10^3/uL RBC 4.28 L (4.6-6.2) 10^6/uL Hgb 13.7 L (14.0-18.0) g/dL Hct 42.1 (40.0-54.0) % MCV 98.4 (80-100) fL MCH 32.0 (27.0-34.0) pg MCHC 32.5 L (33.0-35.0) g/dL Plt Count 166 (150-450) 10^3/uL Neut % (Auto) 80.4 H (42.2-75.2) % Lymph % (Auto) 6.6 L (20.5-50.1) % [place] % (Auto) 12.9 H (2-8) % Eos % (Auto) 0.0 L (1.0-3.0) % Baso % (Auto) 0.1 (0.0-1.0) % Sodium 137 (135-145) mmol/L Potassium 3.4 L (3.6-5.0) mmol/L Chloride 101 (101-111) mmol/L Carbon Dioxide 27.0 (21.0-31.0) mmol/L Anion Gap 12.4 BUN 20 H (7-18) mg/dL Creatinine 0.9 (0.6-1.3) mg/dL Est Cr Clr Drug Dosing 76.64 mL/min Estimated GFR (MDRD) > 60 BUN/Creatinine Ratio 22.22 Glucose 157 H (74-105) mg/dL Lactic Acid 1.6 (0.5-2.2) mmol/L Calcium 8.7 (8.4-10.2) mg/dl Total Bilirubin 1.9 H (0.2-1.0) mg/dL AST 29 (10-42) IU/L ALT 24 (10-60) IU/L Alkaline Phosphatase 56 (42-121) IU/L Troponin I 0.04 H* (0.00-0.02) ng/ml B-Natriuretic Peptide 557 H (0-100) pg/ml Total Protein 7.6 (6.7-8.2) g/dl Albumin 3.8 (3.2-5.5) g/dl Globulin 3.8 Albumin/Globulin Ratio 1.00 Urine Color (YELLOW) Urine Appearance (CLEAR) Urine pH (5.0-9.0) Ur Specific [place] (1.005-1.030) Urine Protein (NEGATIVE) Urine Glucose (UA) (NEGATIVE) Urine Ketones (NEGATIVE) Urine Occult Blood (NEGATIVE) Urine Nitrite (NEGATIVE) Urine Bilirubin (NEGATIVE) Urine Urobilinogen (0.2-1.0) mg/dL Ur Leukocyte Esterase (NEGATIVE) Urine RBC /HPF Urine WBC (0-5/HPF) /HPF Ur Epithelial Cells /HPF Amorphous Sediment (0/HPF) /HPF Urine Bacteria (0-FEW/HPF) /HPF Urine Mucus /LPF 07/22/17 Range/Units 10:26 WBC (5.0-10.0) 10^3/uL RBC (4.6-6.2) 10^6/uL Hgb (14.0-18.0) g/dL Hct (40.0-54.0) % MCV (80-100) fL MCH (27.0-34.0) pg MCHC (33.0-35.0) g/dL Plt Count (150-450) 10^3/uL Neut % (Auto) (42.2-75.2) % Lymph % (Auto) (20.5-50.1) % [place] % (Auto) (2-8) % Eos % (Auto) (1.0-3.0) % Baso % (Auto) (0.0-1.0) % Sodium (135-145) mmol/L Potassium (3.6-5.0) mmol/L Chloride (101-111) mmol/L Carbon Dioxide (21.0-31.0) mmol/L Anion Gap BUN (7-18) mg/dL Creatinine (0.6-1.3) mg/dL Est Cr Clr Drug Dosing mL/min Estimated GFR (MDRD) BUN/Creatinine Ratio Glucose (74-105) mg/dL Lactic Acid (0.5-2.2) mmol/L Calcium (8.4-10.2) mg/dl Total Bilirubin (0.2-1.0) mg/dL AST (10-42) IU/L ALT (10-60) IU/L Alkaline Phosphatase (42-121) IU/L Troponin I (0.00-0.02) ng/ml B-Natriuretic Peptide (0-100) pg/ml Total Protein (6.7-8.2) g/dl Albumin (3.2-5.5) g/dl Globulin Albumin/Globulin Ratio Urine Color Dark yellow (YELLOW) Urine Appearance Slightly cloudy (CLEAR) Urine pH 6.0 (5.0-9.0) Ur Specific [place] 1.020 (1.005-1.030) Urine Protein 100 H (NEGATIVE) Urine Glucose (UA) Negative (NEGATIVE) Urine Ketones Negative (NEGATIVE) Urine Occult Blood Negative (NEGATIVE) Urine Nitrite Negative (NEGATIVE) Urine Bilirubin Small H (NEGATIVE) Urine Urobilinogen 2.0 H (0.2-1.0) mg/dL Ur Leukocyte Esterase Negative (NEGATIVE) Urine RBC 0-5 /HPF Urine WBC 0-5 (0-5/HPF) /HPF Ur Epithelial Cells Few /HPF Amorphous Sediment Moderate (0/HPF) /HPF Urine Bacteria Rare (0-FEW/HPF) /HPF Urine Mucus Few H /LPF Result Diagrams: 07/22/17 10:20 07/22/17 10:20 Yan Results Last 24 hrs: Microbiology 07/22/17 10:13 Influenza Type A Antigen Screen - Final Nasal, Unspecified NEGATIVE INFLUENZA A VIRUS AG Influenza Type B Antigen Screen - Final NEGATIVE INFLUENZA B VIRUS AG - Problem List (1) Hypokalemia SNOMED Code(s): 59856950 ICD Code: E87.6 - HYPOKALEMIA Status: Acute Current Visit: Yes (2) CHF (congestive heart failure) SNOMED Code(s): 24202822 ICD Code: I50.9 - HEART FAILURE, UNSPECIFIED Status: Acute Current Visit : Yes (3) Sepsis SNOMED Code(s): 22298736 ICD Code: A41.9 - SEPSIS, UNSPECIFIED ORGANISM Status: Acute Current Visit: Yes (4) COPD exacerbation SNOMED Code(s): 554775847 ICD Code: J44.1 - CHRONIC OBSTRUCTIVE PULMONARY DISEASE W (ACUTE) EXACERBATION Status: Acute Current Visit: Yes (5) Pneumonia SNOMED Code(s): 025752652 ICD Code: J18.9 - PNEUMONIA, UNSPECIFIED ORGANISM Status: Acute Current Visit: Yes Qualifiers: Pneumonia type: due to unspecified organism Laterality: right Lung location: middle lobe of lung Qualified Code(s): J18.1 - Lobar pneumonia, unspecified organism Problem List Initiated/Reviewed/Updated: Yes Orders Last 24hrs: Active Orders 24 hr Category Date Time Status EKG 12 Lead [EKG Documentation Completion] [RC] STAT Care 07/22/17 09:53 Active Peripheral IV Care [RC] . DIRECTED Care 07/22/17 09:54 Active RT Aerosol Therapy [RC] ASDIRECTED Care 07/22/17 09:47 Active Chest 2V [CR] Stat Exams 07/22/17 09:53 Taken CULTURE BLOOD [BC] Stat Lab 07/22/17 10:20 Received CULTURE BLOOD [BC] Stat Lab 07/22/17 10:24 Received UA W/MICROSCOPIC [URIN] Stat Lab 07/22/17 10:26 Ordered Sodium Chloride 0.9% [Saline Flush] Med 07/22/17 09:52 Active 10 ml FLUSH ASDIRECTED PRN Blood Culture x2 Reflex Set [OM.PC] Stat Oth 07/22/17 09:53 Ordered Peripheral IV Insertion Adult [OM.PC] Stat Oth 07/22/17 09:53 Ordered Medication Orders Sodium Chloride (Saline Flush) 10 ml FLUSH ASDIRECTED PRN PRN Reason: Keep Vein Open Last Admin: 07/22/17 10:32 Dose: 10 ml Assessment/Plan Comment:: ASsesment/Plan #Acute Hypoxic respiratory failure likely due to Pneumonia vs CHF vs underlining undiagnosed COPD -Patient was hypoxic at presentation requiring oxygen -CXR Showed right middle lobe infiltrate -BNP elevated at 557 -He is a previous life ling smoker -Will give supplemental oxygen and wean off as tolerated #Community Acquired Pneumonia -IV ceftriaxone and Azithromycin -Blood culture -Sputum gram stain and culture -Supplement oxygen prn #Likely CHF -IV lasix 40 mg bid -Daily weight -Fluid restriction to 1,2L daily -Echo if available #Likely COPD exacerbation -was wheezing at presentation -h/o of tobacco use -DUONebs q4h prn -Oxygen prn -PFT as outpatient #Sepsis due to pneumonia -Follow cultures as above -IV abx -Gentle hydration #Hypokalemia -will replace #HTN -BP at goal -will continue home medications -monitor BP closely #HLD -Continue home medication #Generalized weakness -PT/OT #Cardiac diet #PT/OT #Full code
[2017-07-22] MEDS ORDERED: Calcium Carbonate 500 MG Tab.Chew PO PRN (13:16)
[2017-07-22] MEDS ORDERED: Acetaminophen 500 MG Tab PO PRN (13:21)
[2017-07-22] MEDS ORDERED: Potassium Chloride 10 MEQ in Premix Bag 1 BAG IV ONE ×2 (13:26→16:15)
[2017-07-22] MEDS ORDERED: Albuterol/Ipratropium 3.0-0.5 MG/3 ML Neb Soln NEB PRN (13:31)
[2017-07-22] MEDS: Celecoxib 100 MG Cap PO SCH (21:49)
[2017-07-22] MEDS: Metoprolol Succinate 50 MG Tab.ER PO SCH (21:50)
[2017-07-22] MEDS: Heparin Sodium 5,000 Units/ML Vial SUBCUT SCH (21:53)
[2017-07-22] MEDS: Nystatin Topical Powder 30 GM Bottle TOP SCH (21:54)
[2017-07-22] MEDS: Furosemide 40 MG/4 ML VIAL IVPUSH SCH (21:58)
[2017-07-23 06:48] LABS: ANION GAP 16.4; CHLORIDE,CL 100 mmol/L (101-111); SODIUM,NA 139 mmol/L (135-145)
[2017-07-23] MEDS ORDERED: methylPREDNISolone 4 MG Tab 21 Tab/Dosepak PO SCH (09:00)
[2017-07-23] MEDS: Nystatin Topical Powder 30 GM Bottle TOP SCH ×4 (09:00→20:55)
[2017-07-23] MEDS: Hydrochlorothiazide 25 MG Tab PO SCH (09:10)
[2017-07-23] MEDS: Clopidogrel 75 MG Tab PO SCH (09:11)
[2017-07-23] MEDS: amLODIPine 5 MG Tab PO SCH (09:11)
[2017-07-23] MEDS: Metoprolol Succinate 50 MG Tab.ER PO SCH ×2 (09:12→20:56)
[2017-07-23] MEDS: Heparin Sodium 5,000 Units/ML Vial SUBCUT SCH ×2 (09:13→20:58)
[2017-07-23] MEDS: Aspirin 81 MG Tab.Chew PO SCH (09:13)
[2017-07-23] MEDS: Furosemide 40 MG/4 ML VIAL IVPUSH SCH ×2 (09:13→19:30)
[2017-07-23] MEDS: atorvaSTATin 10 MG Tab PO SCH (09:13)
--- NOTE | 2017-07-23 09:18 | PCM.PN ---
- General Info Date of Service: 07/23/17 Subjective Update: Patient is 76 y/o male with PMh of HTN, HLP, 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 He presented to te ER with sudden of SOB, cough and weakness. He was found to have pneumonia and subsequently admitted. Functional Status: Reports: Pain Controlled - Review of Systems General: Reports: No Symptoms HEENT: Reports: No Symptoms Pulmonary: Reports: No Symptoms Cardiovascular: Reports: No Symptoms Gastrointestinal: Reports: No Symptoms Genitourinary: Reports: No Symptoms Musculoskeletal: Reports: No Symptoms Skin: Reports: No Symptoms Neurological: Reports: No Symptoms Psychiatric: Reports: No Symptoms - Patient Data Vitals - Most Recent: Last Vital Signs Temp 97.9 F 07/23/17 07:42 Pulse 68 07/23/17 09:12 Resp 20 07/23/17 07:42 BP 116/84 07/23/17 09:12 Pulse Ox 98 07/23/17 07:42 Weight - Most Recent: 263 lb 9.6 oz I&O - Last 24 Hours: Intake & Output 07/22/17 07/23/17 07/23/17 22:59 06:59 14:59 Intake Total 250 Output Total 400 Balance -150 Lab Results Last 24 Hours: Laboratory Results - last 24 hr 07/22/17 07/22/17 07/22/17 Range/Units 10:20 10:20 10:20 WBC 15.5 H (5.0-10.0) 10^3/uL RBC 4.28 L (4.6-6.2) 10^6/uL Hgb 13.7 L (14.0-18.0) g/dL Hct 42.1 (40.0-54.0) % MCV 98.4 (80-100) fL MCH 32.0 (27.0-34.0) pg MCHC 32.5 L (33.0-35.0) g/dL Plt Count 166 (150-450) 10^3/uL Neut % (Auto) 80.4 H (42.2-75.2) % Lymph % (Auto) 6.6 L (20.5-50.1) % [place] % (Auto) 12.9 H (2-8) % Eos % (Auto) 0.0 L (1.0-3.0) % Baso % (Auto) 0.1 (0.0-1.0) % Sodium 137 (135-145) mmol/L Potassium 3.4 L (3.6-5.0) mmol/L Chloride 101 (101-111) mmol/L Carbon Dioxide 27.0 (21.0-31.0) mmol/L Anion Gap 12.4 BUN 20 H (7-18) mg/dL Creatinine 0.9 (0.6-1.3) mg/dL Est Cr Clr Drug Dosing 76.64 mL/min Estimated GFR (MDRD) > 60 BUN/Creatinine Ratio 22.22 Glucose 157 H (74-105) mg/dL Lactic Acid 1.6 (0.5-2.2) mmol/L Calcium 8.7 (8.4-10.2) mg/dl Total Bilirubin 1.9 H (0.2-1.0) mg/dL AST 29 (10-42) IU/L ALT 24 (10-60) IU/L Alkaline Phosphatase 56 (42-121) IU/L Troponin I 0.04 H* (0.00-0.02) ng/ml B-Natriuretic Peptide 557 H (0-100) pg/ml Total Protein 7.6 (6.7-8.2) g/dl Albumin 3.8 (3.2-5.5) g/dl Globulin 3.8 Albumin/Globulin Ratio 1.00 Urine Color (YELLOW) Urine Appearance (CLEAR) Urine pH (5.0-9.0) Ur Specific [place] (1.005-1.030) Urine Protein (NEGATIVE) Urine Glucose (UA) (NEGATIVE) Urine Ketones (NEGATIVE) Urine Occult Blood (NEGATIVE) Urine Nitrite (NEGATIVE) Urine Bilirubin (NEGATIVE) Urine Urobilinogen (0.2-1.0) mg/dL Ur Leukocyte Esterase (NEGATIVE) Urine RBC /HPF Urine WBC (0-5/HPF) /HPF Ur Epithelial Cells /HPF Amorphous Sediment (0/HPF) /HPF Urine Bacteria (0-FEW/HPF) /HPF Urine Mucus /LPF 07/22/17 07/23/17 07/23/17 Range/Units 10:26 05:35 05:35 WBC 12.5 H (5.0-10.0) 10^3/uL RBC 4.18 L (4.6-6.2) 10^6/uL Hgb 13.3 L (14.0-18.0) g/dL Hct 41.3 (40.0-54.0) % MCV 98.8 (80-100) fL MCH 31.8 (27.0-34.0) pg MCHC 32.2 L (33.0-35.0) g/dL Plt Count 180 (150-450) 10^3/uL Neut % (Auto) 77.3 H (42.2-75.2) % Lymph % (Auto) 11.2 L (20.5-50.1) % [place] % (Auto) 11.4 H (2-8) % Eos % (Auto) 0.0 L (1.0-3.0) % Baso % (Auto) 0.1 (0.0-1.0) % Sodium 139 (135-145) mmol/L Potassium 3.4 L (3.6-5.0) mmol/L Chloride 100 L (101-111) mmol/L Carbon Dioxide 26.0 (21.0-31.0) mmol/L Anion Gap 16.4 BUN 27 H (7-18) mg/dL Creatinine 1.0 (0.6-1.3) mg/dL Est Cr Clr Drug Dosing 69.07 mL/min Estimated GFR (MDRD) > 60 BUN/Creatinine Ratio Glucose 134 H (74-105) mg/dL Lactic Acid (0.5-2.2) mmol/L Calcium 8.8 (8.4-10.2) mg/dl Total Bilirubin (0.2-1.0) mg/dL AST (10-42) IU/L ALT (10-60) IU/L Alkaline Phosphatase (42-121) IU/L Troponin I (0.00-0.02) ng/ml B-Natriuretic Peptide 657 H (0-100) pg/ml Total Protein (6.7-8.2) g/dl Albumin (3.2-5.5) g/dl Globulin Albumin/Globulin Ratio Urine Color Dark yellow (YELLOW) Urine Appearance Slightly cloudy (CLEAR) Urine pH 6.0 (5.0-9.0) Ur Specific [place] 1.020 (1.005-1.030) Urine Protein 100 H (NEGATIVE) Urine Glucose (UA) Negative (NEGATIVE) Urine Ketones Negative (NEGATIVE) Urine Occult Blood Negative (NEGATIVE) Urine Nitrite Negative (NEGATIVE) Urine Bilirubin Small H (NEGATIVE) Urine Urobilinogen 2.0 H (0.2-1.0) mg/dL Ur Leukocyte Esterase Negative (NEGATIVE) Urine RBC 0-5 /HPF Urine WBC 0-5 (0-5/HPF) /HPF Ur Epithelial Cells Few /HPF Amorphous Sediment Moderate (0/HPF) /HPF Urine Bacteria Rare (0-FEW/HPF) /HPF Urine Mucus Few H /LPF Yan Results Last 24 Hours: Microbiology 07/22/17 10:13 Influenza Type A Antigen Screen - Final Nasal, Unspecified NEGATIVE INFLUENZA A VIRUS AG Influenza Type B Antigen Screen - Final NEGATIVE INFLUENZA B VIRUS AG Med Orders - Current: Current Medications Acetaminophen (Tylenol Extra Strength) 500 mg PO Q6H PRN PRN Reason: Pain Albuterol/Ipratropium (Duoneb 3.0-0.5 Mg/3 Ml) 3 ml NEB Q4HRRT PRN PRN Reason: Shortness of Breath Amlodipine Besylate (Norvasc) 10 mg PO DAILY [facility] Last Admin: 07/23/17 09:11 Dose: 10 mg Aspirin (Aspirin) 81 mg PO DAILY [facility] Last Admin: 07/23/17 09:13 Dose: 81 mg Atorvastatin Calcium (Lipitor) 10 mg PO DAILY [facility] Last Admin: 07/23/17 09:13 Dose: 10 mg Calcium Carbonate/Glycine (Tums) 500 mg PO Q4H PRN PRN Reason: Dyspepsia Celecoxib (Celebrex) 200 mg PO BEDTIME [facility] Last Admin: 07/22/17 21:49 Dose: 200 mg Clopidogrel Bisulfate (Plavix) 75 mg PO DAILY [facility] Last Admin: 07/23/17 09:11 Dose: 75 mg Furosemide (Lasix) 40 mg IVPUSH BID [facility] Last Admin: 07/23/17 09:13 Dose: 40 mg Heparin Sodium (Porcine) (Heparin Sodium) 5,000 units SUBCUT Q12HR [facility] Last Admin: 07/23/17 09:13 Dose: 5,000 units Hydrochlorothiazide (Hydrochlorothiazide) 25 mg PO DAILY [facility] Last Admin: 07/23/17 09:10 Dose: 25 mg Levofloxacin/Dextrose 750 mg/ (Premix) 150 mls @ 100 mls/hr IV Q24H [facility] Methylprednisolone (Medrol) 4 mg PO DAILY [facility]; Protocol Metoprolol Succinate (Toprol Xl) 100 mg PO BID [facility] Last Admin: 07/23/17 09:12 Dose: 100 mg Nystatin (Nystop) 0 gm TOP QID [facility] Last Admin: 07/22/17 21:54 Dose: 1 applic Sodium Chloride (Saline Flush) 10 ml FLUSH ASDIRECTED PRN PRN Reason: Keep Vein Open Last Admin: 07/22/17 22:05 Dose: 10 ml Discontinued Medications Albuterol/Ipratropium (Duoneb 3.0-0.5 Mg/3 Ml) 3 ml NEB ONETIME ONE Stop: 07/22/17 09:48 Last Admin: 07/22/17 09:52 Dose: 3 ml Levofloxacin/Dextrose 750 mg/ (Premix) 150 mls @ 100 mls/hr IV ONETIME ONE Stop: 07/22/17 12:10 Last Infusion: 07/22/17 16:10 Dose: Infused Potassium Chloride 10 meq/ (Premix) 100 mls @ 100 mls/hr IV ONETIME ONE Stop: 07/22/17 14:25 Last Admin: 07/22/17 16:09 Dose: Not Given Potassium Chloride 10 meq/ (Premix) 100 mls @ 100 mls/hr IV ONETIME ONE Stop: 07/22/17 17:14 Last Admin: 07/22/17 16:12 Dose: 100 mls/hr Methylprednisolone Sodium Succinate (Solu-Medrol) 125 mg IVPUSH ONETIME ONE Stop: 07/22/17 10:42 Last Admin: 07/22/17 11:04 Dose: 125 mg - Exam Quality Assessment: DVT Prophylaxis General: Alert, Oriented HEENT: Pupils Equal, Pupils Reactive, EOMI, Mucous Membr. Moist/[place] Neck: Supple Lungs: Clear to Auscultation, Normal Respiratory Effort Cardiovascular: Regular Rate, Regular Rhythm GI/Abdominal Exam: Normal Bowel Sounds, Soft, Non-Tender, No Organomegaly, No Distention, No Abnormal Bruit, No Mass, Pelvis Stable (Male) Exam: No Hernia, Normal Inspection, Normal Prostate, Circumcised Back Exam: Normal Inspection, Full Range of Motion Extremities: Normal Inspection, Normal Range of Motion, Non-Tender, No Pedal Edema, Normal Capillary Refill Skin: Warm, Dry, Intact Wound/Incisions: Healing Well Neurological: No New Focal Deficit Psy/Mental Status: Alert, Normal Affect, Normal Mood - Problem List & Annotations (1) Hypokalemia SNOMED Code(s): 43738020 Code(s): E87.6 - HYPOKALEMIA Status: Acute Current Visit: Yes (2) CHF (congestive heart failure) SNOMED Code(s): 12982401 Code(s): I50.9 - HEART FAILURE, UNSPECIFIED Status: Acute Current Visit: Yes (3) Sepsis SNOMED Code(s): 96788097 Code(s): A41.9 - SEPSIS, UNSPECIFIED ORGANISM Status: Acute Current Visit : Yes (4) COPD exacerbation SNOMED Code(s): 542038059 Code(s): J44.1 - CHRONIC OBSTRUCTIVE PULMONARY DISEASE W (ACUTE) EXACERBATION Status: Acute Current Visit: Yes (5) Pneumonia SNOMED Code(s): 735811738 Code(s): J18.9 - PNEUMONIA, UNSPECIFIED ORGANISM Status: Acute Current Visit: Yes Qualifiers: Pneumonia type: due to unspecified organism Laterality: right Lung location: middle lobe of lung Qualified Code(s): J18.1 - Lobar pneumonia, unspecified organism - Problem List Review Problem List Initiated/Reviewed/Updated: Yes - My Orders Last 24 Hours: My Active Orders 07/22/17 13:16 Patient Status [ADT] Routine Vital Signs [RC] Q4H Calcium Carbonate [Tums] 500 mg PO Q4H PRN DVT/VTE Prophylaxis Reflex [OM.PC] Routine Resuscitation Status Routine 07/22/17 13:18 Intake and Output [RC] QSHIFT Oxygen Therapy [RC] CONTINUOUS Pulse Oximetry [RC] PRN 07/22/17 13:19 Antiembolic Devices [RC] .Routine VTE/DVT Education [RC] PER UNIT ROUTINE 07/22/17 13:21 Acetaminophen [Tylenol Extra Strength] 500 mg PO Q6H PRN 07/22/17 13:28 Blood Culture x2 Reflex Set [OM.PC] Stat 07/22/17 13:31 Albuterol/Ipratropium [DuoNeb 3.0-0.5 MG/3 ML] 3 ml NEB Q4HRRT PRN 07/22/17 13:32 RT Aerosol Therapy [RC] ASDIRECTED 07/22/17 18:33 Antiembolic Hose [OM.PC] Routine 07/22/17 21:00 Celecoxib [CeleBREX] 200 mg PO BEDTIME Furosemide [Lasix] 40 mg IVPUSH BID Heparin Sodium 5,000 units SUBCUT Q12HR Metoprolol Succinate [Toprol XL] 100 mg PO BID Nystatin [Nystop] 0 gm TOP QID 07/22/17 Dinner 2 Gram Sodium Diet [DIET] 07/23/17 09:00 Aspirin 81 mg PO DAILY Clopidogrel [Plavix] 75 mg PO DAILY Hydrochlorothiazide 25 mg PO DAILY Levofloxacin/Dextrose 5%-Water [Levaquin in D5W 750 MG/150 ML] 750 mg Premix Bag 1 bag IV Q24H amLODIPine [Norvasc] 10 mg PO DAILY atorvaSTATin [Lipitor] 10 mg PO DAILY methylPREDNISolone [Medrol] 4 mg PO DAILY 07/24/17 07:00 BASIC METABOLIC PANEL,BMP [CHEM] DAILY CBC WITH AUTO DIFF [HEME] DAILY - Plan Plan:: ASsesment/Plan #Acute Hypoxic respiratory failure likely due to Pneumonia vs CHF vs underlining undiagnosed COPD - Now improved -Patient was hypoxic at presentation requiring oxygen -CXR Showed right middle lobe infiltrate -BNP elevated at 557 -He is a previous life ling smoker -Will give supplemental oxygen and wean off as tolerated #Community Acquired Pneumonia -Continue IV Levaquine -follow Blood culture -Follow Sputum gram stain and culture -Supplement oxygen prn #Likely CHF -IV lasix 40 mg bid -Daily weight -Fluid restriction to 1,2L daily -Echo if available #Likely COPD exacerbation -was wheezing at presentation -h/o of tobacco use -DUONebs q4h prn -Oxygen prn -PFT as outpatient #Sepsis due to pneumonia -Resolved -Follow cultures as above -IV abx #Hypokalemia -will replace #HTN -BP at goal -will continue home medications -monitor BP closely #HLD -Continue home medication #Generalized weakness -PT/OT #Cardiac diet #PT/OT #Full code
[2017-07-23] MEDS: Levofloxacin/Dextrose 5%-Water 750 MG in Premix Bag 1 BAG IV SCH (10:32)
[2017-07-23] MEDS: Sodium Chloride 0.9% 10 ML Syringe FLUSH PRN ×2 (10:34→19:31)
[2017-07-23] MEDS ORDERED: Potassium Chloride 10 MEQ in Premix Bag 1 BAG IV ONE (11:00)
[2017-07-23] MEDS: Celecoxib 100 MG Cap PO SCH (20:57)
[2017-07-24 06:44] LABS: ANION GAP 14.8; CHLORIDE,CL 100 mmol/L (101-111); SODIUM,NA 138 mmol/L (135-145)
[2017-07-24] MEDS: Aspirin 81 MG Tab.Chew PO SCH (09:31)
[2017-07-24] MEDS: atorvaSTATin 10 MG Tab PO SCH (09:32)
[2017-07-24] MEDS: Metoprolol Succinate 50 MG Tab.ER PO SCH (09:32)
[2017-07-24] MEDS: Hydrochlorothiazide 25 MG Tab PO SCH (09:32)
[2017-07-24] MEDS: Clopidogrel 75 MG Tab PO SCH (09:32)
[2017-07-24] MEDS: Heparin Sodium 5,000 Units/ML Vial SUBCUT SCH (09:33)
[2017-07-24] MEDS: amLODIPine 5 MG Tab PO SCH (09:33)
[2017-07-24] MEDS: Nystatin Topical Powder 30 GM Bottle TOP SCH ×2 (10:23→13:58)
[2017-07-24] MEDS: Furosemide 40 MG/4 ML VIAL IVPUSH SCH (10:24)
[2017-07-24] MEDS: Levofloxacin/Dextrose 5%-Water 750 MG in Premix Bag 1 BAG IV SCH (10:24)
[2017-07-24] MEDS: Sodium Chloride 0.9% 10 ML Syringe FLUSH PRN (10:28)
--- NOTE | 2017-07-24 10:28 | PCM.DCSUM1 ---
Discharge Summary - Discharge Data Discharge Date: 07/24/17 Discharge Disposition: Home, Self-Care 01 Condition: Good - Discharge Diagnosis/Problem(s) (1) Hypokalemia SNOMED Code(s): 16029458 ICD Code: E87.6 - HYPOKALEMIA Status: Acute Current Visit: Yes (2) CHF (congestive heart failure) SNOMED Code(s): 98927009 ICD Code: I50.9 - HEART FAILURE, UNSPECIFIED Status: Acute Current Visit : Yes Qualifiers: Heart failure type: diastolic Heart failure chronicity: acute Qualified Code(s): I50.31 - Acute diastolic (congestive) heart failure (3) Sepsis SNOMED Code(s): 93391831 ICD Code: A41.9 - SEPSIS, UNSPECIFIED ORGANISM Status: Acute Current Visit: Yes Qualifiers: Sepsis type: sepsis due to unspecified organism Qualified Code(s): A41.9 - Sepsis, unspecified organism (4) COPD exacerbation SNOMED Code(s): 356708978 ICD Code: J44.1 - CHRONIC OBSTRUCTIVE PULMONARY DISEASE W (ACUTE) EXACERBATION Status: Acute Current Visit: Yes (5) Pneumonia SNOMED Code(s): 431158810 ICD Code: J18.9 - PNEUMONIA, UNSPECIFIED ORGANISM Status: Acute Current Visit: Yes Qualifiers: Pneumonia type: due to unspecified organism Laterality: right Lung location: middle lobe of lung Qualified Code(s): J18.1 - Lobar pneumonia, unspecified organism - Patient Summary/Data Consults: Consultations 07/23/17 10:18 OT Evaluation and Treatment [CONS] Routine PT Evaluation and Treatment [CONS] Routine - Patient Instructions Diet: Heart Healthy Diet Fluid Restriction: 1500 mL Activity: As Tolerated Driving: May Drive Today Showering/Bathing: May Shower Notify Provider of: Fever, Increased Pain, Swelling and Redness, Nausea and/or Vomiting - Discharge Plan Prescriptions/Med Rec: Nystatin [Nystop] 2 gm TOP QID 30 Days #1 bottle Home Medications: Home Meds Acetaminophen [Tylenol Extra Strength] 500 mg PO Q6H PRN 09/28/16 [History] Aspirin 81 mg PO DAILY 09/28/16 [History] Clopidogrel [Plavix] 75 mg PO DAILY 09/28/16 [History] Hydrochlorothiazide 25 mg PO DAILY 09/28/16 [History] Metoprolol Succinate [Toprol XL] 100 mg PO BID 09/28/16 [History] amLODIPine [Norvasc] 10 mg PO DAILY 09/28/16 [History] atorvaSTATin [Lipitor] 10 mg PO DAILY 09/28/16 [History] Celecoxib 200 mg PO BEDTIME 07/22/17 [History] Nystatin [Nystop] 2 gm TOP QID 30 Days #1 bottle 07/24/17 [Rx] Forms: ED Department Discharge Referrals: PCP,Unobtain [Ordering Only Provider] - - Discharge Summary/Plan Comment DC Time >30 min.: Yes - General Info Date of Service: 07/24/17 Subjective Update: Patient is 76 y/o male with PMh of HTN, HLP, 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 He presented to the ER with sudden of SOB, cough and weakness. He was found to have pneumonia and subsequently admitted. He was managed with IV antibiotics and IV diuretics with significant improvement in his symptoms. His SOB has improved. He is deem stable for outpatient evaluation. He will follow with his PCP. Functional Status: Reports: Pain Controlled - Review of Systems General: Reports: No Symptoms HEENT: Reports: No Symptoms Pulmonary: Reports: No Symptoms Cardiovascular: Reports: No Symptoms Gastrointestinal: Reports: No Symptoms Genitourinary: Reports: No Symptoms Musculoskeletal: Reports: No Symptoms Skin: Reports: No Symptoms Neurological: Reports: No Symptoms Psychiatric: Reports: No Symptoms - Patient Data Vitals - Most Recent: Last Vital Signs Temp 98.1 F 07/24/17 07:34 Pulse 58 L 07/24/17 09:32 Resp 20 07/24/17 07:34 BP 144/69 H 07/24/17 09:33 Pulse Ox 93 L 07/24/17 07:34 Weight - Most Recent: 258 lb 3.2 oz I&O - Last 24 hours: Intake & Output 07/23/17 07/24/17 07/24/17 22:59 06:59 14:59 Intake Total 620 100 365 Output Total 900 625 Balance -280 -525 365 Lab Results - Last 24 hrs: Laboratory Results - last 24 hr 07/24/17 07/24/17 07/24/17 Range/Units 06:00 06:50 06:50 WBC 11.8 H (5.0-10.0) 10^3/uL RBC 4.16 L (4.6-6.2) 10^6/uL Hgb 13.3 L (14.0-18.0) g/dL Hct 41.1 (40.0-54.0) % MCV 98.8 (80-100) fL MCH 32.0 (27.0-34.0) pg MCHC 32.4 L (33.0-35.0) g/dL Plt Count 189 (150-450) 10^3/uL Neut % (Auto) 62.7 (42.2-75.2) % Lymph % (Auto) 21.6 (20.5-50.1) % [place] % (Auto) 15.1 H (2-8) % Eos % (Auto) 0.5 L (1.0-3.0) % Baso % (Auto) 0.1 (0.0-1.0) % Sodium 138 (135-145) mmol/L Potassium 3.8 (3.6-5.0) mmol/L Chloride 100 L (101-111) mmol/L Carbon Dioxide 27.0 (21.0-31.0) mmol/L Anion Gap 14.8 BUN 31 H (7-18) mg/dL Creatinine 1.0 (0.6-1.3) mg/dL Est Cr Clr Drug Dosing 69.07 mL/min Estimated GFR (MDRD) > 60 Glucose 87 (74-105) mg/dL Calcium 8.7 (8.4-10.2) mg/dl B-Natriuretic Peptide 221 H (0-100) pg/ml AKIN Results - Last 24 hrs: Microbiology 07/22/17 10:24 Aerobic Blood Culture - Preliminary Blood - Venous - Lab Draw NO GROWTH AFTER 1 DAY Anaerobic Blood Culture - Preliminary NO GROWTH AFTER 1 DAY 07/22/17 10:20 Aerobic Blood Culture - Preliminary Blood - Venous NO GROWTH AFTER 1 DAY Anaerobic Blood Culture - Preliminary NO GROWTH AFTER 1 DAY Med Orders - Current: Current Medications Acetaminophen (Tylenol Extra Strength) 500 mg PO Q6H PRN PRN Reason: Pain Albuterol/Ipratropium (Duoneb 3.0-0.5 Mg/3 Ml) 3 ml NEB Q4HRRT PRN PRN Reason: Shortness of Breath Amlodipine Besylate (Norvasc) 10 mg PO DAILY [facility] Last Admin: 07/24/17 09:33 Dose: 10 mg Aspirin (Aspirin) 81 mg PO DAILY [facility] Last Admin: 07/24/17 09:31 Dose: 81 mg Atorvastatin Calcium (Lipitor) 10 mg PO DAILY [facility] Last Admin: 07/24/17 09:32 Dose: 10 mg Calcium Carbonate/Glycine (Tums) 500 mg PO Q4H PRN PRN Reason: Dyspepsia Celecoxib (Celebrex) 200 mg PO BEDTIME [facility] Last Admin: 07/23/17 20:57 Dose: 200 mg Clopidogrel Bisulfate (Plavix) 75 mg PO DAILY [facility] Last Admin: 07/24/17 09:32 Dose: 75 mg Furosemide (Lasix) 40 mg IVPUSH BID@0900,1400 [facility] Last Admin: 07/23/17 19:30 Dose: 40 mg Heparin Sodium (Porcine) (Heparin Sodium) 5,000 units SUBCUT Q12HR [facility] Last Admin: 07/24/17 09:33 Dose: 5,000 units Hydrochlorothiazide (Hydrochlorothiazide) 25 mg PO DAILY [facility] Last Admin: 07/24/17 09:32 Dose: 25 mg Levofloxacin/Dextrose 750 mg/ (Premix) 150 mls @ 100 mls/hr IV Q24H [facility] Last Infusion: 07/23/17 12:39 Dose: Infused Metoprolol Succinate (Toprol Xl) 100 mg PO BID [facility] Last Admin: 07/24/17 09:32 Dose: 100 mg Nystatin (Nystop) 0 gm TOP QID [facility] Last Admin: 07/23/17 20:55 Dose: 1 applic Sodium Chloride (Saline Flush) 10 ml FLUSH ASDIRECTED PRN PRN Reason: Keep Vein Open Last Admin: 07/23/17 19:31 Dose: 10 ml Discontinued Medications Albuterol/Ipratropium (Duoneb 3.0-0.5 Mg/3 Ml) 3 ml NEB ONETIME ONE Stop: 07/22/17 09:48 Last Admin: 07/22/17 09:52 Dose: 3 ml Furosemide (Lasix) 40 mg IVPUSH BID [facility] Last Admin: 07/23/17 09:13 Dose: 40 mg Levofloxacin/Dextrose 750 mg/ (Premix) 150 mls @ 100 mls/hr IV ONETIME ONE Stop: 07/22/17 12:10 Last Infusion: 07/22/17 16:10 Dose: Infused Potassium Chloride 10 meq/ (Premix) 100 mls @ 100 mls/hr IV ONETIME ONE Stop: 07/22/17 14:25 Last Admin: 07/22/17 16:09 Dose: Not Given Potassium Chloride 10 meq/ (Premix) 100 mls @ 100 mls/hr IV ONETIME ONE Stop: 07/22/17 17:14 Last Admin: 07/22/17 16:12 Dose: 100 mls/hr Potassium Chloride 10 meq/ (Premix) 100 mls @ 100 mls/hr IV ONETIME ONE Stop: 07/23/17 11:59 Last Infusion: 07/23/17 14:29 Dose: Infused Methylprednisolone (Medrol) 4 mg PO DAILY [facility]; Protocol Last Admin: 07/23/17 14:20 Dose: Not Given Methylprednisolone Sodium Succinate (Solu-Medrol) 125 mg IVPUSH ONETIME ONE Stop: 07/22/17 10:42 Last Admin: 07/22/17 11:04 Dose: 125 mg - Exam General: Reports: Alert, Oriented HEENT: Reports: Pupils Equal, Pupils Reactive, EOMI, Mucous Membr. Moist/[place] Neck: Reports: Supple Lungs: Reports: Clear to Auscultation, Normal Respiratory Effort Cardiovascular: Reports: Regular Rate, Regular Rhythm GI/Abdominal Exam: Normal Bowel Sounds, Soft, Non-Tender, No Organomegaly, No Distention, No Abnormal Bruit, No Mass, Pelvis Stable (Male) Exam: No Hernia, Normal Inspection, Normal Prostate, Circumcised Rectal (Males) Exam: Normal Exam, Normal Rectal Tone, Prostate Normal Back Exam: Reports: Normal Inspection, Full Range of Motion Extremities: Normal Inspection, Normal Range of Motion, Non-Tender, No Pedal Edema, Normal Capillary Refill Skin: Reports: Warm, Dry, Intact Wound/Incisions: Reports: Healing Well Neurological: Reports: No New Focal Deficit Psy/Mental Status: Reports: Alert, Normal Affect, Normal Mood
[2017-07-24] MEDS ORDERED: Furosemide 40 MG Tab PO PRN (10:39)
[2017-07-24 10:53] VITALS: BP 127/68
[2017-07-25] MEDS ORDERED: Levofloxacin 500 MG Tab PO SCH (11:00)
--- NOTE | 2017-07-26 09:18 | EKG ---
07/22/2017 - LATASHA LINDSEY- TIME: 10:03 a.m. As per reading, EKG shows sinus rhythm at 71. [facility] /[id number]
== END 2017-07-24 13:23 | disposition home or self-care (01) | DRG 871 ==
LOC: DL.ED 09:24 → UNDOADMIN 11:35 → DL.MS 11:35
PROVIDERS: ADMIT Student in an Organized Health Care Education/Training Program; ATTEND Student in an Organized Health Care Education/Training Program
DX: A41.9 Sepsis, unspecified organism (principal); I50.31 Acute diastolic (congestive) heart failure; J18.1 Lobar pneumonia, unspecified organism; J96.01 Acute respiratory failure with hypoxia; J18.9 Pneumonia, unspecified organism; R06.02 Shortness of breath; R05 Cough; R06.2 Wheezing; E78.00 Pure hypercholesterolemia, unspecified; I10 Essential (primary) hypertension; J44.1 Chronic obstructive pulmonary disease with (acute) exacerbation; J44.0 Chronic obstructive pulmonary disease with (acute) lower respiratory infection; D64.9 Anemia, unspecified; E87.6 Hypokalemia; I11.0 Hypertensive heart disease with heart failure; E78.5 Hyperlipidemia, unspecified; R53.1 Weakness; M54.5 Low back pain; H91.90 Unspecified hearing loss, unspecified ear; M19.90 Unspecified osteoarthritis, unspecified site; E66.9 Obesity, unspecified; Z87.891 Personal history of nicotine dependence; Z96.643 Presence of artificial hip joint, bilateral; Z88.8 Allergy status to other drugs, medicaments and biological substances; Z79.02 Long term (current) use of antithrombotics/antiplatelets; Z79.82 Long term (current) use of aspirin; Z79.899 Other long term (current) drug therapy; Z68.35 Body mass index [BMI] 35.0-35.9, adult
CPT/HCPCS: 36415; 71046; 80053; 81001; 83605; 83880; 84484; 85025; 87040 ×2; 87804 ×2; 93005; 93010; 94640; 96365; 96375; 99285; J1956; J2930; J7050; 80048; 97161-GP; A9270-GY; J1644; J1940; J3480

== ENCOUNTER 2017-08-27 03:39 | Emergency (ER) | payer MEDICARE, OTHER ==
[2017-08-27] MEDS ORDERED: Sodium Chloride 0.9% 1,000 ML IV ONE (04:07)
--- NOTE | 2017-08-27 04:28 | EDM.PDOC ---
ED HPI GENERAL MEDICAL PROBLEM - General Chief Complaint: General Stated Complaint: WEAK, BACK PAIN, DIARREA [id number] Time Seen by Provider: 08/27/17 04:15 Source of Information: Reports: Patient History Limitations: Reports: No Limitations - History of Present Illness INITIAL COMMENTS - FREE TEXT/NARRATIVE: This 76 yo male patient reports to the ED due to weakness. The patient reports that he started to have diarrhea yesterday in the morning. The patient reports that he had 6-7 loose bowel movements yesterday. The patient reports that he only drank 1/2 glass of orange juice and 1/2 of a grapefruit yesterday. The patient reports that every time he had a drink of fluid or ate something, he had to have a bowel movement. The patient reports that he went to bed at about 2030 last night and slept well until about 0100 this morning. The patient reports that he had a hard time getting out of the recliner this morning and had to have help getting out of the recliner. The patient reports he has lower back pain, but has been experiencing the lower back pain for a while. The patient reports that he was feeling a little better while he was having physical therapy, but now seems to be having increased lower back pain. The patient reports no other complaints at this time. Onset Date: 08/26/17 Duration: Constant Location: Reports: Generalized (weakness) Quality: Reports: Other Severity: Moderate Improves with: Reports: None Worsens with: Reports: None Associated Symptoms: Reports: Other (diarrhea) Lower Back Pain Score (Numeric/FACES): 5 - Related Data Allergies Allergy/AdvReac Type Severity Reaction Status Date / Time chlorhexidine Allergy Rash Verified 08/27/17 03:54 Home Meds: Home Meds Acetaminophen [Tylenol Extra Strength] 500 mg PO Q6H PRN 09/28/16 [History] Aspirin 81 mg PO DAILY 09/28/16 [History] Clopidogrel [Plavix] 75 mg PO DAILY 09/28/16 [History] Hydrochlorothiazide 25 mg PO DAILY 09/28/16 [History] Metoprolol Succinate [Toprol XL] 100 mg PO BID 09/28/16 [History] amLODIPine [Norvasc] 10 mg PO DAILY 09/28/16 [History] atorvaSTATin [Lipitor] 10 mg PO DAILY 09/28/16 [History] Celecoxib 200 mg PO BEDTIME 07/22/17 [History] Furosemide [Lasix] 40 mg PO BID 30 Days #60 tablet 07/24/17 [Rx] Nystatin [Nystop] 2 gm TOP QID 30 Days #1 bottle 07/24/17 [Rx] Past Medical History - Past Health History Medical/Surgical History: Denies Medical/Surgical History HEENT History: Reports: Hard of Hearing Cardiovascular History: Reports: High Cholesterol, Hypertension 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 Neurological History: Reports: None Hematologic History: Reports: Anemia Oncologic (Cancer) History: Reports: Other (See Below) Other Oncologic History: "some kind of spot removed of my right wrist" Dermatologic History: Reports: Other (See Below) Other Dermatologic History: Spot on nose - Infectious Disease History Infectious Disease History: Reports: Measles, Rheumatic Fever - Past Surgical History HEENT Surgical History: Reports: Adenoidectomy, Tonsillectomy Cardiovascular Surgical History: Reports: Carotid Endarterectomy Respiratory Surgical History: Reports: None Musculoskeletal Surgical History: Reports: Hip Replacement Dermatological Surgical History: Reports: None Social & Family History - Family History Family Medical History: Noncontributory - Tobacco Use Smoking Status *Q: Former Smoker Used Tobacco, but Quit: Yes Month/Year Tobacco Last Used: - Caffeine Use Caffeine Use: Reports: Coffee - Recreational Drug Use Recreational Drug Use: No - Living Situation & Occupation Living situation: Reports: Single, Other (lives with his brother) Occupation: Retired ED ROS GENERAL - Review of Systems Review Of Systems: ROS reveals no pertinent complaints other than HPI. ED EXAM, GENERAL - Physical Exam Exam: See Below Exam Limited By: No Limitations General Appearance: Alert, WD/WN, Moderate Distress Eye Exam: Bilateral Eye: EOMI, Normal Inspection, PERRL Ears: Normal External Exam, Normal Canal, Hearing Grossly Normal, Normal TMs Nose: Normal Inspection, Normal Mucosa, No Blood Throat/Mouth: Normal Inspection, Normal Lips, Normal Teeth, Normal Gums, Normal Oropharynx, Normal Voice, No Airway Compromise Head: Atraumatic, Normocephalic Neck: Normal Inspection, Supple, Non-Tender, Full Range of Motion Respiratory/Chest: No Respiratory Distress, Lungs Clear, Normal Breath Sounds, No Accessory Muscle Use, Chest Non-Tender Cardiovascular: Normal Peripheral Pulses, Regular Rate, Rhythm, No Edema, No Gallop, No JVD, No Murmur, No Rub GI/Abdominal: Normal Bowel Sounds, Soft, Non-Tender, No Organomegaly, No Distention, No Abnormal Bruit, No Mass (Male) Exam: Deferred Rectal (Males) Exam: Deferred Back Exam: Vertebral Tenderness (lower back (patient reports it is chronic in nature)) Extremities: Normal Inspection, Normal Range of Motion, Non-Tender, Normal Capillary Refill, No Pedal Edema Neurological: Alert, Oriented, CN II-XII Intact, Normal Cognition, Normal Reflexes, No Motor/Sensory Deficits Psychiatric: Normal Affect, Depressed Mood Skin Exam: Other (The patient is generally well kept. ) Lymphatic: No Adenopathy Course - Vital Signs Last Recorded V/S: Last Vital Signs Temp 37.7 C 08/27/17 04:57 Pulse 68 08/27/17 04:57 Resp 18 08/27/17 04:57 BP 135/75 08/27/17 04:57 Pulse Ox 93 L 08/27/17 04:57 - Orders/Labs/Meds Orders: Active Orders 24 hr Category Date Time Status CULTURE BLOOD [BC] Stat Lab 08/27/17 04:37 Ordered CULTURE BLOOD [BC] Stat Lab 08/27/17 04:37 Ordered UA W/MICROSCOPIC [URIN] Stat Lab 08/27/17 06:06 Ordered Blood Culture x2 Reflex Set [OM.PC] Stat Oth 08/27/17 04:37 Ordered Labs: Laboratory Tests 08/27/17 08/27/17 08/27/17 Range/Units 04:16 04:16 04:16 WBC 13.5 H (5.0-10.0) 10^3/uL RBC 5.04 (4.6-6.2) 10^6/uL Hgb 16.1 D (14.0-18.0) g/dL Hct 47.9 (40.0-54.0) % MCV 95.0 D (80-100) fL MCH 31.9 (27.0-34.0) pg MCHC 33.6 (33.0-35.0) g/dL Plt Count 161 (150-450) 10^3/uL Neut % (Auto) 87.3 H (42.2-75.2) % Lymph % (Auto) 3.7 L (20.5-50.1) % [place] % (Auto) 8.9 H (2-8) % Eos % (Auto) 0.0 L (1.0-3.0) % Baso % (Auto) 0.1 (0.0-1.0) % Sodium 136 (135-145) mmol/L Potassium 2.6 L (3.6-5.0) mmol/L Chloride 95 L (101-111) mmol/L Carbon Dioxide 28.0 (21.0-31.0) mmol/L Anion Gap 15.6 BUN 23 H (7-18) mg/dL Creatinine 1.2 (0.6-1.3) mg/dL Est Cr Clr Drug Dosing 57.48 mL/min Estimated GFR (MDRD) 59 BUN/Creatinine Ratio 19.16 Glucose 135 H (74-105) mg/dL Lactic Acid 2.1 (0.5-2.2) mmol/L Calcium 9.1 (8.4-10.2) mg/dl Total Bilirubin 0.8 (0.2-1.0) mg/dL AST 35 (10-42) IU/L ALT 22 (10-60) IU/L Alkaline Phosphatase 67 (42-121) IU/L Total Protein 8.2 (6.7-8.2) g/dl Albumin 4.2 (3.2-5.5) g/dl Globulin 4.0 Albumin/Globulin Ratio 1.05 Meds: Medications Discontinued Medications Generic Name Dose Route Start Last Admin Trade Name Freq PRN Reason Stop Dose Admin Sodium Chloride 1,000 mls @ 500 mls/hr 08/27/17 04:07 08/27/17 04:26 Normal Saline IV 08/27/17 06:06 500 mls/hr .BOLUS ONE Administration Potassium Chloride 10 meq/ 100 mls @ 100 mls/hr 08/27/17 04:44 08/27/17 04:50 Premix IV 08/27/17 05:43 100 mls/hr ONETIME ONE Administration Departure - Departure Time of Disposition: 06:09 Disposition: Home, Self-Care 01 Condition: Fair Clinical Impression: Dehydration, Hypokalemia - Discharge Information Instructions: Hypokalemia, Dehydration, Adult, [id number] Forms: ED Department Discharge Care Plan Goals: The patient was advised of the examination and lab results during the visit. The patient was given IV fluids and IV potassium while in the ED. The patient was encouraged to eat well balanced meals and increase his oral fluid intake. If the patient has any additional symptoms or concerns, the patient should follow-up with his primary care facility or return to the emergency department. - My Orders Last 24 Hours: My Active Orders 08/27/17 04:37 CULTURE BLOOD [BC] Stat CULTURE BLOOD [BC] Stat Blood Culture x2 Reflex Set [OM.PC] Stat 08/27/17 06:06 UA W/MICROSCOPIC [URIN] Stat - Assessment/Plan Last 24 Hours: My Active Orders 08/27/17 04:37 CULTURE BLOOD [BC] Stat CULTURE BLOOD [BC] Stat Blood Culture x2 Reflex Set [OM.PC] Stat 08/27/17 06:06 UA W/MICROSCOPIC [URIN] Stat
[2017-08-27] MEDS ORDERED: Potassium Chloride 10 MEQ in Premix Bag 1 BAG IV ONE (04:44)
[2017-08-27 05:01] VITALS: BP 135/75
== END 2017-08-27 06:24 | disposition home or self-care (01) ==
LOC: DL.ED 03:39
DX: E86.0 Dehydration (principal); E87.6 Hypokalemia; I10 Essential (primary) hypertension; Z87.891 Personal history of nicotine dependence; Z88.8 Allergy status to other drugs, medicaments and biological substances; Z79.82 Long term (current) use of aspirin; Z79.899 Other long term (current) drug therapy
CPT/HCPCS: 36415; 80053; 81001; 83605; 85025; 87040; 96365; 96366; 99284; J3480; J7030; 99283

== ENCOUNTER 2018-01-18 08:04 | Emergency (ER) | payer MEDICARE, OTHER ==
--- NOTE | 2018-01-18 08:19 | EDM.PDOC ---
ED HPI GENERAL MEDICAL PROBLEM - General Chief Complaint: Upper Extremity Injury/Pain Stated Complaint: RT ELBOW STIFF Time Seen by Provider: 01/18/18 08:17 Source of Information: Reports: Patient, Old Records, RN, RN Notes Reviewed History Limitations: Reports: No Limitations - History of Present Illness INITIAL COMMENTS - FREE TEXT/NARRATIVE: Pt presents to the ER from home by POV with c/o his right elbow being stiff, hot , swollen, and very painful. Pt states that yesterday he began to have pain in the right elbow, but didn't think much of it because he had not fallen or bumped it. He shoveled snow despite the pain, and after that it began to feel hot and swollen. In ER triage pt was found to have a fever of 101.7F, tachycardia with heart rate of 108 (pt on Metoprolol XL 100mg BID), and oxygen sats. of 91%. He denies cough or shortness of breath. Denies any other painful or swollen joints. 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, Other Medication(s) Right Elbow Pain Score (Numeric/FACES): 10 - Related Data Allergies Allergy/AdvReac Type Severity Reaction Status Date / Time chlorhexidine Allergy Unknown Rash Verified 01/18/18 08:13 Home Meds: Home Meds Acetaminophen [Tylenol Extra Strength] 500 mg PO Q6H PRN 09/28/16 [History] Aspirin 81 mg PO DAILY 09/28/16 [History] Clopidogrel [Plavix] 75 mg PO DAILY 09/28/16 [History] Metoprolol Succinate [Toprol XL] 100 mg PO BID 09/28/16 [History] amLODIPine [Norvasc] 10 mg PO DAILY 09/28/16 [History] atorvaSTATin [Lipitor] 10 mg PO DAILY 09/28/16 [History] hydroCHLOROthiazide [Hydrochlorothiazide] 25 mg PO DAILY 09/28/16 [History] Celecoxib 200 mg PO BEDTIME 07/22/17 [History] Furosemide [Lasix] 40 mg PO BID 30 Days #60 tablet 07/24/17 [Rx] Nystatin [Nystop] 2 gm TOP QID 30 Days #1 bottle 07/24/17 [Rx] Gabapentin [Neurontin] 300 mg PO DAILY 01/18/18 [History] Oxybutynin [Oxybutynin ER] 5 mg PO DAILY 01/18/18 [History] Potassium Chloride 20 mg PO DAILY 01/18/18 [History] Tamsulosin [Flomax] 0.4 mg PO DAILY 01/18/18 [History] Past Medical History - Past Health History Medical/Surgical History: Denies Medical/Surgical History HEENT History: Reports: Hard of Hearing Cardiovascular History: Reports: High Cholesterol, Hypertension 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 Neurological History: Reports: None Other Neuro History: Cerebral artery occlusion with cerebral infarction Hematologic History: Reports: Anemia Oncologic (Cancer) History: Reports: Other (See Below) Other Oncologic History: "some kind of spot removed of my right wrist" Dermatologic History: Reports: Other (See Below) Other Dermatologic History: Spot on nose - Infectious Disease History Infectious Disease History: Reports: Measles, Rheumatic Fever - Past Surgical History HEENT Surgical History: Reports: Adenoidectomy, Tonsillectomy Cardiovascular Surgical History: Reports: Carotid Endarterectomy Respiratory Surgical History: Reports: None Musculoskeletal Surgical History: Reports: Hip Replacement Dermatological Surgical History: Reports: None Social & Family History - Family History Family Medical History: Noncontributory - Caffeine Use Caffeine Use: Reports: Coffee - Living Situation & Occupation Living situation: Reports: Single, Other (lives with his brother) Occupation: Retired Review of Systems - Review of Systems Review Of Systems: ROS reveals no pertinent complaints other than HPI. ED EXAM, GENERAL - Physical Exam Exam: See Below Exam Limited By: No Limitations General Appearance: Alert, No Apparent Distress Nose: Normal Mucosa, No Blood, Nasal Deformity (chronic rhinophyma) Throat/Mouth: Normal Inspection, Normal Lips, Normal Voice, No Airway Compromise Head: Atraumatic, Normocephalic Neck: Normal Inspection, Non-Tender, Full Range of Motion Respiratory/Chest: No Respiratory Distress, Lungs Clear, No Accessory Muscle Use , Chest Non-Tender, Decreased Breath Sounds. No: Rales, Rhonchi, Wheezing Cardiovascular: Regular Rate, Rhythm, Tachycardia, Other (Trace pedal edema) Peripheral Pulses: 3+: Radial (L), Radial (R) GI/Abdominal: Normal Bowel Sounds, Soft, Non-Tender, No Distention (Male) Exam: Deferred Rectal (Males) Exam: Deferred Back Exam: Normal Inspection Extremities: Normal Capillary Refill, Joint Swelling (Rt elbow), Arm Pain (Rt elbow tender to palpation), Limited Range of Motion (Rt elbow), Increased Warmth (Rt elbow), Redness (mild at Rt elbow) Neurological: Alert, Oriented, Normal Cognition, No Motor/Sensory Deficits Psychiatric: Normal Mood Skin Exam: Warm, Dry, Intact, No Rash Course - Vital Signs Last Recorded V/S: Last Vital Signs Temp 38.0 C 01/18/18 09:37 Pulse 108 H 01/18/18 08:07 Resp 20 01/18/18 08:07 BP 126/72 01/18/18 08:07 Pulse Ox 91 L 01/18/18 08:07 - Orders/Labs/Meds Orders: Active Orders 24 hr Category Date Time Status Peripheral IV Care [RC] . DIRECTED Care 01/18/18 08:29 Active CULTURE BLOOD [BC] Stat Lab 01/18/18 08:42 Received CULTURE BLOOD [BC] Stat Lab 01/18/18 09:30 Received UA W/MICROSCOPIC [URIN] Stat Lab 01/18/18 08:28 Ordered Sodium Chloride 0.9% [Saline Flush] Med 01/18/18 08:29 Active 10 ml FLUSH ASDIRECTED PRN Blood Culture x2 Reflex Set [OM.PC] Stat Oth 01/18/18 08:28 Ordered Peripheral IV Insertion Adult [OM.PC] Stat Oth 01/18/18 08:28 Ordered Medication Orders Sodium Chloride (Saline Flush) 10 ml FLUSH ASDIRECTED PRN PRN Reason: Keep Vein Open Last Admin: 01/18/18 08:45 Dose: 10 ml Labs: Laboratory Tests 01/18/18 01/18/18 01/18/18 Range/Units 08:55 08:55 08:55 WBC 16.7 H (5.0-10.0) 10^3/uL RBC 4.63 (4.6-6.2) 10^6/uL Hgb 14.4 D (14.0-18.0) g/dL Hct 43.3 (40.0-54.0) % MCV 93.5 (80-100) fL MCH 31.1 (27.0-34.0) pg MCHC 33.3 (33.0-35.0) g/dL Plt Count 186 (150-450) 10^3/uL Neut % (Auto) 80.4 H (42.2-75.2) % Lymph % (Auto) 7.1 L (20.5-50.1) % Price % (Auto) 12.4 H (2-8) % Eos % (Auto) 0.0 L (1.0-3.0) % Baso % (Auto) 0.1 (0.0-1.0) % ESR (0-15) mm/hr Sodium 135 (135-145) mmol/L Potassium 3.1 L (3.6-5.0) mmol/L Chloride 94 L (101-111) mmol/L Carbon Dioxide 28.0 (21.0-31.0) mmol/L Anion Gap 16.1 BUN 15 (7-18) mg/dL Creatinine 0.8 (0.6-1.3) mg/dL Est Cr Clr Drug Dosing 84.88 mL/min Estimated GFR (MDRD) > 60 BUN/Creatinine Ratio 18.75 Glucose 132 H (74-105) mg/dL Lactic Acid 1.6 (0.5-2.2) mmol/L Uric Acid 11.1 H (2.6-7.2) mg/dL Calcium 8.5 (8.4-10.2) mg/dl Total Bilirubin 1.7 H (0.2-1.0) mg/dL AST 22 (10-42) IU/L ALT 14 (10-60) IU/L Alkaline Phosphatase 66 (42-121) IU/L C-Reactive Protein (0.0-1.3) mg/dL B-Natriuretic Peptide 629 H (0-100) pg/ml Total Protein 7.3 (6.7-8.2) g/dl Albumin 3.5 (3.2-5.5) g/dl Globulin 3.8 Albumin/Globulin Ratio 0.92 01/18/18 01/18/18 Range/Units 08:55 08:55 WBC (5.0-10.0) 10^3/uL RBC (4.6-6.2) 10^6/uL Hgb (14.0-18.0) g/dL Hct (40.0-54.0) % MCV (80-100) fL MCH (27.0-34.0) pg MCHC (33.0-35.0) g/dL Plt Count (150-450) 10^3/uL Neut % (Auto) (42.2-75.2) % Lymph % (Auto) (20.5-50.1) % Price % (Auto) (2-8) % Eos % (Auto) (1.0-3.0) % Baso % (Auto) (0.0-1.0) % ESR 65 H (0-15) mm/hr Sodium (135-145) mmol/L Potassium (3.6-5.0) mmol/L Chloride (101-111) mmol/L Carbon Dioxide (21.0-31.0) mmol/L Anion Gap BUN (7-18) mg/dL Creatinine (0.6-1.3) mg/dL Est Cr Clr Drug Dosing mL/min Estimated GFR (MDRD) BUN/Creatinine Ratio Glucose (74-105) mg/dL Lactic Acid (0.5-2.2) mmol/L Uric Acid (2.6-7.2) mg/dL Calcium (8.4-10.2) mg/dl Total Bilirubin (0.2-1.0) mg/dL AST (10-42) IU/L ALT (10-60) IU/L Alkaline Phosphatase (42-121) IU/L C-Reactive Protein 10.8 H (0.0-1.3) mg/dL B-Natriuretic Peptide (0-100) pg/ml Total Protein (6.7-8.2) g/dl Albumin (3.2-5.5) g/dl Globulin Albumin/Globulin Ratio Meds: Medications Generic Name Dose Route Start Last Admin Trade Name Freq PRN Reason Stop Dose Admin Sodium Chloride 10 ml 01/18/18 08:29 01/18/18 08:45 Saline Flush FLUSH 10 ml ASDIRECTED PRN Administration Keep Vein Open Discontinued Medications Generic Name Dose Route Start Last Admin Trade Name Freq PRN Reason Stop Dose Admin Hydrocodone Bitart/Acetaminophen 1 tab 01/18/18 08:31 01/18/18 08:50 [place] 325-10 Mg PO 10/05/18 08:32 1 tab ONETIME ONE Administration - Radiology Interpretation Free Text/Narrative:: XR Chest: multiple old/healed fracture or left posterior and lateral ribs, chronic bronchitis pattern w/Rt infrahilar scarring, no acute process; see Rad. report. XR Right Elbow: Suspicious appearance or radial head, possible occult fracture, severe arthritic changes, no effusion, soft tissue swelling; see Rad. report. - Re-Assessments/Exams Free Text/Narrative Re-Assessment/Exam: 01/18/18 10:18 The pt is hemodynamically stable, therefore I find it reasonable to delay starting antibiotics pending transfer to [facility] for joint aspiration to obtain a culture. *After transfer is arranged, the pt decided to refuse ambulance transfer. I explained the potential risks of POV transfer and benefits of ambulance transfer to the pt. He chooses to have a friend drive him to [facility] for direct admission. Pt is instructed to go directly to [facility] in [place], and to remain NPO. Departure - Departure Time of Disposition: 10:22 Disposition: DC/Tfer to Acute Hospital 02 Condition: Serious Clinical Impression: Septic arthritis of elbow, right Qualifiers: Septic arthritis organism: due to unspecified organism Qualified Code(s): M00.9 - Pyogenic arthritis, unspecified - Discharge Information *PRESCRIPTION DRUG MONITORING PROGRAM REVIEWED*: No *COPY OF PRESCRIPTION DRUG MONITORING REPORT IN PATIENT DAVID: No Forms: ED Department Discharge, Interfacility Transfer EMTALA - My Orders Last 24 Hours: My Active Orders 01/18/18 08:28 UA W/MICROSCOPIC [URIN] Stat Blood Culture x2 Reflex Set [OM.PC] Stat Peripheral IV Insertion Adult [OM.PC] Stat 01/18/18 08:29 Peripheral IV Care [RC] . DIRECTED Sodium Chloride 0.9% [Saline Flush] 10 ml FLUSH ASDIRECTED PRN 01/18/18 08:42 CULTURE BLOOD [BC] Stat 01/18/18 09:30 CULTURE BLOOD [BC] Stat - Assessment/Plan Last 24 Hours: My Active Orders 01/18/18 08:28 UA W/MICROSCOPIC [URIN] Stat Blood Culture x2 Reflex Set [OM.PC] Stat Peripheral IV Insertion Adult [OM.PC] Stat 01/18/18 08:29 Peripheral IV Care [RC] . DIRECTED Sodium Chloride 0.9% [Saline Flush] 10 ml FLUSH ASDIRECTED PRN 01/18/18 08:42 CULTURE BLOOD [BC] Stat 01/18/18 09:30 CULTURE BLOOD [BC] Stat
[2018-01-18] MEDS ORDERED: Sodium Chloride 0.9% 10 ML Syringe FLUSH PRN (08:29)
[2018-01-18 08:30] VITALS: BP 126/72
[2018-01-18] MEDS ORDERED: Acetaminophen/HYDROcodone 325-10 MG Tab PO ONE (08:31)
[2018-01-18 09:27] LABS: ANION GAP 16.1; CHLORIDE,CL 94 mmol/L (101-111); SODIUM,NA 135 mmol/L (135-145)
--- NOTE | 2018-01-18 10:04 | CR ---
Clinical history: 77-year-old male with fever and history of CHF. Interpretation: Several old healed fracture deformities posterior lateral left hemithorax and arthritic changes of th e dorsal spine. Chronic bronchitic pattern with old right infrahilar pleural parenchymal scarring. Normal cardiac silhouette without cephalization of flow, signs of alveolar edema or dependent pleural fluid accumulation (dramatic improvement since 22 July 2017 exam). No new lung mass hilar lymphadenopathy or focal lobar pneumonia.
--- NOTE | 2018-01-18 10:07 | CR ---
Clinical history: 77-year-old male with elbow pain, swelling and fever. 3 views right elbow confirm arthritic spur formation olecranon process proximal ulna. Note: Soft tissue swelling laterally with irregular lucent line across the head of the radius suggest ing.... possibility of occult, nondisplaced, radial head fracture. Clinical correlation. Point tender ness? No right elbow joint effusion, other fracture or right elbow joint dislocation. No foreign bodies. CONCLUSION: Suspicious appearance radial head (see above). 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
== END 2018-01-18 11:15 ==
LOC: DL.ED 08:04
DX: M00.9 Pyogenic arthritis, unspecified (principal); I10 Essential (primary) hypertension; Z88.1 Allergy status to other antibiotic agents; Z79.899 Other long term (current) drug therapy
CPT/HCPCS: 36415; 71046; 73080; 80053; 83605; 83880; 84550; 85025; 85651; 86140; 87040; 87804; 99285; A9270; J7050; 99284

== ENCOUNTER 2018-06-17 06:36 | Emergency (ER) | payer MEDICARE, OTHER ==
[2018-06-17 06:50] VITALS: BP 158/99
--- NOTE | 2018-06-17 06:56 | EDM.PDOC ---
<TreKristy R - Last Filed: 06/17/18 07:38> ED HPI GENERAL MEDICAL PROBLEM - General Chief Complaint: ENT Problem Stated Complaint: SINUSES Time Seen by Provider: 06/17/18 06:50 Source of Information: Reports: Patient, RN, RN Notes Reviewed History Limitations: Reports: No Limitations - History of Present Illness INITIAL COMMENTS - FREE TEXT/NARRATIVE: Patient presents to the emergency department with complaints of a runny nose. He woke up with morning with a runny nose and drainage in his throat that cleared when he coughed. Denies fever, chills, N&V, diarrhea, sinus pain, and ear pain. He has not taken any OTC medications. Onset: Today Onset Date: 06/17/18 Onset Time: 06:30 Severity: Mild Improves with: Reports: None Worsens with: Reports: None Associated Symptoms: Reports: Cough, Other (runny nose). 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 - Related Data Allergies Allergy/AdvReac Type Severity Reaction Status Date / Time chlorhexidine Allergy Unknown Rash Verified 06/17/18 06:45 Home Meds: Home Meds Acetaminophen [Tylenol Extra Strength] 500 mg PO Q6H PRN 09/28/16 [History] Aspirin 81 mg PO DAILY 09/28/16 [History] Clopidogrel [Plavix] 75 mg PO DAILY 09/28/16 [History] Metoprolol Succinate [Toprol XL] 100 mg PO BID 09/28/16 [History] amLODIPine [Norvasc] 10 mg PO DAILY 09/28/16 [History] atorvaSTATin [Lipitor] 10 mg PO DAILY 09/28/16 [History] hydroCHLOROthiazide [Hydrochlorothiazide] 25 mg PO DAILY 09/28/16 [History] Celecoxib 200 mg PO BEDTIME 07/22/17 [History] Furosemide [Lasix] 40 mg PO BID 30 Days #60 tablet 07/24/17 [Rx] Nystatin [Nystop] 2 gm TOP QID 30 Days #1 bottle 07/24/17 [Rx] Gabapentin [Neurontin] 300 mg PO DAILY 01/18/18 [History] Oxybutynin [Oxybutynin ER] 5 mg PO DAILY 01/18/18 [History] Potassium Chloride 20 mg PO DAILY 01/18/18 [History] Tamsulosin [Flomax] 0.4 mg PO DAILY 01/18/18 [History] Past Medical History - Past Health History Medical/Surgical History: Denies Medical/Surgical History HEENT History: Reports: Hard of Hearing Cardiovascular History: Reports: High Cholesterol, Hypertension Respiratory History: Reports: COPD Genitourinary History: Reports: Other (See Below) Other Genitourinary History: dribbles urine. 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 Neurological History: Reports: None Other Neuro History: Cerebral artery occlusion with cerebral infarction Hematologic History: Reports: Anemia Oncologic (Cancer) History: Reports: Other (See Below) Other Oncologic History: "some kind of spot removed of my right wrist" Dermatologic History: Reports: Other (See Below) Other Dermatologic History: Spot on nose - Infectious Disease History Infectious Disease History: Reports: Measles, Rheumatic Fever - Past Surgical History HEENT Surgical History: Reports: Adenoidectomy, Tonsillectomy Cardiovascular Surgical History: Reports: Carotid Endarterectomy Respiratory Surgical History: Reports: None Musculoskeletal Surgical History: Reports: Hip Replacement Dermatological Surgical History: Reports: None Social & Family History - Family History Family Medical History: Noncontributory - Caffeine Use Caffeine Use: Reports: Coffee - Living Situation & Occupation Living situation: Reports: Single, Other (lives with his brother) Occupation: Retired ED ROS ENT - Review of Systems Review Of Systems: See Below Constitutional: Denies: Fever, Chills, Weakness, Fatigue, Decreased Appetite HEENT: Reports: Rhinitis. Denies: Ear Pain, Nosebleed, Throat Pain Respiratory: Reports: Cough. Denies: Shortness of Breath Cardiovascular: Reports: No Symptoms. Denies: Chest Pain Endocrine: Reports: No Symptoms GI/Abdominal: Reports: No Symptoms. Denies: Abdominal Pain, Diarrhea, Nausea, Vomiting : Reports: No Symptoms Musculoskeletal: Reports: No Symptoms Skin: Reports: No Symptoms Neurological: Reports: No Symptoms Psychiatric: Reports: No Symptoms Hematologic/Lymphatic: Reports: No Symptoms Immunologic: Reports: No Symptoms ED EXAM, ENT - Physical Exam Exam: See Below Exam Limited By: No Limitations General Appearance: Alert, WD/WN, No Apparent Distress Eye Exam: Right Eye: PERRL Ears: Normal External Exam, Normal Canal, Hearing Grossly Normal, TM Obscured by Cerumen Nose: Normal Inspection, Normal Mucousa, No Blood, Nasal Discharge (clear) Mouth/Throat: Normal Inspection, Uvular Edema, Other (dry tongue) Head: Atraumatic, Normocephalic Neck: Normal Inspection, Supple, Non-Tender, Full Range of Motion. No: Lymphadenopathy (L), Lymphadenopathy (R) Respiratory/Chest: No Respiratory Distress, Lungs Clear, Normal Breath Sounds, No Accessory Muscle Use, Chest Non-Tender Cardiovascular: Normal Peripheral Pulses, Regular Rate, Rhythm, No Edema, No Gallop, No JVD, No Murmur, No Rub GI/Abdominal: Normal Bowel Sounds, Soft, Non-Tender, No Organomegaly, No Distention, No Abnormal Bruit, No Mass (Male) Exam: Deferred Rectal (Males) Exam: Deferred Back: Normal Inspection, Full Range of Motion Extremities: Normal Inspection, Normal Range of Motion, Non-Tender, No Pedal Edema, Normal Capillary Refill Neurological: Alert, Oriented, Normal Cognition, Normal Gait, Normal Reflexes, No Motor/Sensory Deficits Psychiatric: Normal Affect, Normal Mood Skin: Warm, Dry, Intact, Normal Color, No Rash Lymphatic: No Adenopathy Course - Vital Signs Last Recorded V/S: Last Vital Signs Temp 37.4 C 06/17/18 06:48 Pulse 98 06/17/18 06:48 Resp 20 06/17/18 06:48 BP 158/99 H 06/17/18 06:48 Pulse Ox 99 06/17/18 06:48 Departure - Departure Disposition: Home, Self-Care 01 Clinical Impression: Rhinitis Qualifiers: Rhinitis type: acute Qualified Code(s): J00 - Acute nasopharyngitis [common cold] - Discharge Information *PRESCRIPTION DRUG MONITORING PROGRAM REVIEWED*: No *COPY OF PRESCRIPTION DRUG MONITORING REPORT IN PATIENT DAVID: No Instructions: Postnasal Drip, Nonallergic Rhinitis Forms: ED Department Discharge Additional Instructions: Saline Nasal spray twice daily until symptom free 10 minutes later Afrin nasal spray 2 sprays twice a day for only 2 days and 2 days only. 10 minutes later 1 spray fluticasone twice daily for a week and then 1 spray daily until symptom free. OTC Return to ED if symptoms are worsening and not improving Follow up with primary care provider in 5-7 days if symptoms are not improving or worsening. - Assessment/Plan Assessment:: acute rhinitis Plan: Saline Nasal spray twice daily until symptom free 10 minutes later Afrin nasal spray 2 sprays twice a day for only 2 days and 2 days only. 10 minutes later 1 spray fluticasone twice daily for a week and then 1 spray daily until symptom free. OTC Return to ED if symptoms are worsening and not improving Follow up with primary care provider in 5-7 days if symptoms are not improving or worsening. <TerryRoberto Ese - Last Filed: 06/17/18 11:48> ED EXAM, ENT - Physical Exam Ears: Normal TMs (Left TM normal. Right TM obscured by cerumen.), TM Obscured by Cerumen (right). No: Normal Canal Nose: Clear Rhinorrhea, Nasal Discharge Course - Re-Assessments/Exams Free Text/Narrative Re-Assessment/Exam: 06/17/18 11:43 I saw this patient in tandem with the nurse practitioner student. I was present during the physical evaluation care planning and disposition. I personally evaluated the patient myself as well as. I agree with the plan of care and the disposition planning. The patient was comfortable with this plan and his questions are answered. Departure - Departure Time of Disposition: 07:30
== END 2018-06-17 07:50 | disposition home or self-care (01) ==
LOC: DL.ED 06:36
DX: J00 Acute nasopharyngitis [common cold] (principal); Z79.82 Long term (current) use of aspirin; Z79.899 Other long term (current) drug therapy; I10 Essential (primary) hypertension; Z98.890 Other specified postprocedural states; Z96.643 Presence of artificial hip joint, bilateral; Z88.8 Allergy status to other drugs, medicaments and biological substances
CPT/HCPCS: 99282